=== PATIENT | female | born 1980 | race Caucasian/White ===

== ENCOUNTER 2018-02-04 15:16 | Emergency (ER) | payer OTHER, MEDICAID, SELFPAY ==
[2018-02-04 15:17] VITALS: BP 148/94; PULSE 118; RESP 20; TEMP 36; O2SAT 95; BMI 39.4
--- NOTE | 2018-02-04 15:26 | ED.VISSUMM ---
- ER Visit Summary Date of Service: 02/04/18 Chief Complaint: Dysuria History of Present Illness: The patient is a 37 F who has had 2 days of dysuria. She states it started with pain at the end of her urine stream but now it is a constant pain in her urethra. She does have a history of UTIs in the past. Denies any abdominal pain, nausea or vomiting. Denies any fevers or hematuria. She does admit that the smell of her urine has changed Physical Examination: Vital signs reviewed. HEENT exam unremarkable. Heart is regular rate and rhythm without murmurs. Lungs are clear to auscultation. Abdomen is soft and nontender. Extremities reveal no edema. Neurologic exam normal. Test Results: UA shows greater than 100 white blood cells Emergency Department Course and Treatment: Patient will be treated with Bactrim for UTI. I will give her Pyridium for home. We will follow-up with her PCP Treatment Plan: [] Disposition: Discharge Impression: UTI This note was generated with [employer] dictation software. It may contain incorrect words, spelling, and punctuation that were not noted in review of the chart prior to signing ED Disposition - Plan for ED Patient: Chief Complaint: Complaint Referrals: Marcello Baxter MD [Primary Care Provider] -
[2018-02-04 16:45] LABS: Color, Urine Yellow (Yellow); Glucose, Dipstick Normal (Normal); Ketone-Dipstick Negative (Negative); Leukocyte Esterase-Dipstick 500 /ul (Negative); Nitrite-Dipstick Positive (Negative); Occult Blood-Urine 25 /ul (Negative); Protein-Dipstick 30 mg/dl (Negative); Urine Bilirubin Dipstick Negative (Negative); Urine Clarity Cloudy (Clear); Urine Urobilinogen Normal (Normal)
[2018-02-04 16:56] LABS: Internal QC Validated? YES +Cl - CLEAR BKGD; Pregnancy, Urine Negative Negative
[2018-02-04 17:02] LABS: Bacteria 2+ /hpf (None Seen); Mucous, Urine 3+ /hpf (<or=2+); Red Blood Cells-Urine 5-10 SEEN /hpf (0-5); Squamous Epithelial Cells - UA 0-5 SEEN /hpf (5-10); White Blood Cells >100 SEEN /hpf (0-5)
--- NOTE | 2018-02-04 17:12 | ED.DEP ---
ED Disposition - Plan for ED Patient: Disposition: Home or Assisted Living Chief Complaint: Complaint Instructions: ED UTI Cystitis Female Prescriptions: Phenazopyridine HCl [Pyridium] 200 mg PO BID PRN PRN #10 tab PRN Reason: Pain Smz/Tmp Ds [Bactrim Ds] 1 tab PO BID #9 tab Referrals: Marcello Baxter MD [Primary Care Provider] -
[2018-02-04] MEDS: Smz/Tmp Ds Tablet 1 TABLET PO (17:16)
[2018-02-04 17:19] VITALS: BP 108/69; PULSE 73; RESP 15; O2SAT 99
== END 2018-02-04 17:20 | disposition home or self-care (01) ==
PROVIDERS: Emergency Provider Emergency Medicine; Family Provider Family Medicine; PCP Family Medicine
DX: N39.0 Urinary tract infection, site not specified (principal); G43.909 Migraine, unspecified, not intractable, without status migrainosus; G25.81 Restless legs syndrome; Z79.899 Other long term (current) drug therapy; Z87.440 Personal history of urinary (tract) infections
CPT/HCPCS: 81001; 81025; 99283

== ENCOUNTER → 2018-09-15 06:46 | Outpatient (CLI) | payer OTHER, MEDICAID, SELFPAY ==
--- NOTE | 2018-09-15 10:12 | NEURO ---
NCS and/or EMG Patient Report Ordering Doctor: Marcello Baxter DATE OF SERVICE: 09/15/18 This is a bilateral upper extremity nerve conduction study performed on this 38-year-old female who is previously healthy however complains of numbness tingling and weakness in her upper extremities affecting her hands worse on the left side. Is left-handed. Things have been present for several years but have become worse over the past several months which she associates with increased work load. She does have intermittent neck pain. She describes symptoms as affecting the first 3 digits primarily. Bilateral upper extremity sensory and motor nerve conduction study is performed. The bilateral median motor and sensory distal latencies are prolonged, severely on the left, moderately on the right. Velocities are mildly reduced. Amplitude on the right side are normal on the left side there are mildly reduced. The ulnar motor and sensory and radial sensory responses are normal bilaterally. The median F wave latencies bilaterally are prolonged more so on the left. Left upper extremity needle electromyography is performed. Evaluated included the first dorsal interosseous, abductor pollicis brevis, brachioradialis, biceps, triceps and deltoid muscles. The abductor pollicis brevis muscle did demonstrate mild increase in insertional activity with 1+ fibrillation potentials and positive sharp waves as well as mildly increased motor unit amplitude. more proximal muscles were normal, and all other c8 muscles are normal. impression: abnormal electrophysiologic study of the upper extremities consistent with tunnel syndrome bilaterally, moderate on the right, severe on the left. No evidence of radiculopathy.
--- OUTSIDE RECORDS SUMMARY | 2018-11-01 05:23 | XMS RPT_ITS ---
:1980 Author Organization OHIP Care Team Providers Name Role Phone NITIN WISDOM Attending Unavailable NITIN WISDOM Attending Unavailable NITIN WISDOM Referring Unavailable NITIN WISDOM Attending Unavailable SURAJ HEALY (WATER SUPPLY ENGINEER) Attending Unavailable SURAJ HEALY (WATER SUPPLY ENGINEER) Referring Unavailable GARCIA BLACKBURN (PT) Attending Unavailable SURAJ HEALY (WATER SUPPLY ENGINEER) Referring Unavailable GARCIA BLACKBURN (PT) Attending Unavailable SURAJ HEALY (WATER SUPPLY ENGINEER) Referring Unavailable SURAJ HEALY (WATER SUPPLY ENGINEER) Attending Unavailable GARCIA BLACKBURN (PT) Attending Unavailable MILAD MTZ Attending Unavailable NITIN WISDOM Referring Unavailable SURAJ HEALY (WATER SUPPLY ENGINEER) Attending Unavailable SURAJ HEALY (WATER SUPPLY ENGINEER) Referring Unavailable Nitin Wisdom Attending Unavailable Nitin Wisdom Referring Unavailable Nitin Wisdom Primary Care Unavailable Nitin Wisdom Primary Care Unavailable Lopez Dougherty Attending Unavailable PROBLEMS PROBLEMS DATE TYPE CONDITION / CODE ATTENDING STATUS SOURCE 06/15/2018 Active Encounter for NA Active [facility] therapeutic drug [place] level monitoring Repository / Z51.81(ICD-10) 07/12/2018 Unknown R30.0 - Dysuria / Lowe, Lopez Active [place] R30.0(ICD-10) [facility] Repository PROCEDURES PROCEDURES No Procedure Records FoundRESULTS RESULTS PROGRESS Observed: 10/27/2018 Status: COMPLETED Source: [place] 8:04 AM [facility] [place] REPOSITORY HNO ID: [id number] Author: Suraj Healy Service: (none) Author Type: Nurse Practitioner Type: Progress Notes Filed: 10/27/2018 8:28 AM Note Text: Chief Complaint Patient presents with: Recheck: anxiety HPI Carlos Foley is a 38 year old female who presents here today for Above Complaints. Patient presents today for 3 month follow-up for anxiety. Patient is prescribed Effexor XR 75 mg once daily. she is also prescribed Klonopin 1 mg, 1-2 tablets daily as needed. Overall, anxiety is okay. States that she gets nervous with driving in the snow. Does use Klonopin when she gets home from driving in the snow. Has not had as many headaches in the past due to lower levels of stress. Usually takes Klonopin once daily, occasionally will take 1/2 tablet to an entire tablet in the evening in addition. Is not using Imitrex due to her improve headaches. Of note, she has been dealing with bilateral carpal tunnel syndrome. Did have an EMG to confirm this diagnosis. She has an appointment with Dr. Machado this week to discuss options for treatment. She is still taking the gabapentin as prescribed. Past medical history, appointments, medications, allergies reviewed. 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 Previous Surgical History PAST SURGICAL HISTORY Procedure Laterality Date - ESSURE 06/22/2012 Dr Sanders Family History FAMILY HISTORY Problem Relation Age of Onset - Hypertension Mother - Hypertension Maternal Grandmother - Hypertension Maternal Grandfather - Cancer Paternal Grandmother pancreatic - Hypertension Father - Diabetes Maternal Uncle - Diabetes Maternal Uncle Patient Allergies ALLERGIES Allergen Reactions - Prozac [Fluoxetine * Other: See Comments Caused insomnia - Vioxx [Rofecoxib] Swelling tongue and throat swell Current Medications Current Outpatient Prescriptions on File Prior to Visit: clonazePAM (KLONOPIN) 1 mg tablet Take 1-2 tablets by mouth once daily as needed for up to 30 days. venlafaxine ER (EFFEXOR XR) 75 mg 24 hr capsule TAKE 1 CAPSULE BY MOUTH EVERY DAY gabapentin (NEURONTIN) 800 mg tablet Take 1 tablet by mouth three times daily for 180 days. SUMAtriptan (IMITREX) 50 mg tablet Take 1 tablet by mouth as needed for Migraine Headache (see administration instructions). No current facility-administered medications on file prior to visit. 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 Reviewed relevant PMHx, PSHx, Social Hx, current medications and allergies. EXAM: BP 125/89 Pulse 88 Temp 37.1 ?C (98.7 ?F) (Tympanic) Wt 110.7 kg (244 lb) BMI 40.29 kg/m? General Appearance: Well appearing, alert, in no acute distress, well-hydrated, well nourished.. Lungs: lungs clear to auscultation. No wheezing, rhonchi, rales. Heart: RRR without murmur, gallop, or rubs. No ectopy. Health Maintenance List DTAP,TDAP,TD(2 - Tdap) due on 2001 HPV EVERY 5 YEARS due on 2012 PAP EVERY 5 YEARS due on 08/19/2016 INFLUENZA Completed Data reviewed Component Latest Ref Rng AND Units 10/21/2016 06/15/2018 06/15/2018 9:14 AM 9:15 AM Cannabinoid Quant, Urine <16 ng/mL <16 Benzoylecognine Quant, Urine <24 ng/mL <24 6-Acetylmorphine Quant, Urine <5 ng/mL <5 Amphetamine Quant, Urine <5 ng/mL <5 Methamphetamine Quant, Urine <8 ng/mL <8 Buprenorphine Quant, Urine <20 ng/mL <20 Norbuprenorphine Quant, Urine <20 ng/mL <20 Methadone Quant, Urine <16 ng/mL <16 EDDP Quant, Urine <6 ng/mL <6 Tramadol Quant, Urine <25 ng/mL <25 Desmethyltramadol Quant, Urine <20 ng/mL <20 Fentanyl Quant, Urine <6 ng/mL <6 Norfentanyl Quant, Urine <6 ng/mL <6 Codeine Quant, Urine <11 ng/mL <11 Morphine Quant, Urine <10 ng/mL <10 Dihydrocodeine Quant, Urine <5 ng/mL <5 Hydrocodone Quant, Urine <8 ng/mL <8 Oxycodone Quant, Urine <10 ng/mL <10 Hydromorphone Quant, Urine <5 ng/mL <5 Oxymorphone Quant, Urine <5 ng/mL <5 Creatinine,Ur Pain Ortiz 42.2 - 237.9 mg/dL 100.9 Urine pH, Pain Ortiz 4.5 - 8.0 6.6 Specific [place],Ur Pain Ortiz 1.002 - 1.030 1.015 Oxidants,Ur <200 mg/L <38 Specimen Validity Nitrites <51 mg/L <50 <50 Specimen Validity Chromate <50 mg/L <10 <10 Specimen Validity Quality Specimen quality results within acceptable limits. Specimen quality results within acceptable limits. Note,Ur Pain Ortiz This test is for Medical use only. 7-aminoclonazepam, Urine <40 ng/mL <40 Alpha-hydroxytriazolam, Urine <40 ng/mL <40 Oxazepam, Urine <40 ng/mL <40 Alpha-hydroxyalprazolam, Urine <60 ng/mL <60 Lorazepam, Urine <40 ng/mL <40 Nordiazepam, Urine <40 ng/mL <40 Temazepam, Urine <40 ng/mL <40 Specimen Validity Creatinine 42.2 - 237.9 mg/dL 100.4 Specimen Validity PH 4.5 - 8.0 6.6 Specimen Validity Specific [place] 1.002 - 1.030 1.015 Specimen Validity Oxidants <200 mg/L <38 Benzo Confirm, Note This test is for Medical use only. Glucose 74 - 99 mg/dL 102 (H) BUN 7 - 21 mg/dL 10 Creatinine 0.58 - 0.96 mg/dL 0.80 Sodium 136 - 144 mmol/L 140 Potassium 3.7 - 5.1 mmol/L 4.1 Chloride 97 - 105 mmol/L 103 CO2 22 - 30 mmol/L 24 Anion Gap 9 - 18 mmol/L 13 Calcium 8.6 - 10.0 mg/dL 8.9 eGFR- >60 eGFR-All Other Races . >60 T4 5.5 - 10.2 ug/dL 6.4 T4 Uptake 0.91 - 1.19 0.98 FTI 5.3 - 10.8 ug/dL 6.5 TSH 0.400 - 5.500 uU/mL 0.901 ASSESSMENT/PLAN: 1. KP (generalized anxiety disorder) - ICD9: 300.02, ICD10: F41.1 (primary diagnosis) - Stable, continue current medications. Rx for Clonazepam faxed to [facility]. - CLONAZEPAM 1 MG TABLET [facility] website checked and validated. All prescriptions have been APPROPRIATELY filled. No suspicious activity was identified. 10/27/2018 by Suraj Healy APRN.CNP - VENLAFAXINE ER 75 MG CAPSULE,EXTENDED RELEASE 24 HR 2. Carpal tunnel syndrome, bilateral - ICD9: 354.0, ICD10: G56.03 - continue plan to follow with orthopedics 3. Headache disorder - ICD9: 784.0, ICD10: R51 - greatly improved, continue as needed use of Imitrex. F/u in 3 months, sooner if needed. Suraj Healy APRN.CNP CNOV Observed: 10/27/2018 Status: COMPLETED Source: ARABI 7:40 AM [facility] REPOSITORY Office Visit (FAMPWS) CARLOS FOLEY ([id number]) 1980 F Date Time Provider Department 10/27/18 7:40 AM SURAJ HEALY (WATER SUPPLY ENGINEER) FAMPWS During your visit today, we recorded the following information about you: Temperature Pulse Blood pressure Weight 98.7 degrees 88/minute 125/89 110.7 kg Suraj Healy APRN.CNP 10/27/2018 8:28 AM Signed Chief Complaint Patient presents with: Recheck: anxiety HPI Carlos Foley is a 38 year old female who presents here today for Above Complaints. Patient presents today for 3 month follow-up for anxiety. Patient is prescribed Effexor XR 75 mg once daily. she is also prescribed Klonopin 1 mg, 1-2 tablets daily as needed. Overall, anxiety is okay. States that she gets nervous with driving in the snow. Does use Klonopin when she gets home from driving in the snow. Has not had as many headaches in the past due to lower levels of stress. Usually takes Klonopin once daily, occasionally will take 1/2 tablet to an entire tablet in the evening in addition. Is not using Imitrex due to her improve headaches. Of note, she has been dealing with bilateral carpal tunnel syndrome. Did have an EMG to confirm this diagnosis. She has an appointment with Dr. Machado this week to discuss options for treatment. She is still taking the gabapentin as prescribed. Past medical history, appointments, medications, allergies reviewed. 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 Previous Surgical History PAST SURGICAL HISTORY Procedure Laterality Date - ESSURE 06/22/2012 Dr Sanders Family History FAMILY HISTORY Problem Relation Age of Onset - Hypertension Mother - Hypertension Maternal Grandmother - Hypertension Maternal Grandfather - Cancer Paternal Grandmother pancreatic - Hypertension Father - Diabetes Maternal Uncle - Diabetes Maternal Uncle Patient Allergies ALLERGIES Allergen Reactions - Prozac [Fluoxetine * Other: See Comments Caused insomnia - Vioxx [Rofecoxib] Swelling tongue and throat swell Current Medications Current Outpatient Prescriptions on File Prior to Visit: clonazePAM (KLONOPIN) 1 mg tablet Take 1-2 tablets by mouth once daily as needed for up to 30 days. venlafaxine ER (EFFEXOR XR) 75 mg 24 hr capsule TAKE 1 CAPSULE BY MOUTH EVERY DAY gabapentin (NEURONTIN) 800 mg tablet Take 1 tablet by mouth three times daily for 180 days. SUMAtriptan (IMITREX) 50 mg tablet Take 1 tablet by mouth as needed for Migraine Headache (see administration instructions). No current facility-administered medications on file prior to visit. Social History Social History Marital status: Single Spouse name: MIRTA Years of education: 12 Number of children: 3 Occupational History Occupation Employer Comment [employer]* [employer] Social History Main Topics Smoking status: Never Smoker Smokeless tobacco: Never Used Alcohol use: No Drug use: No Sexual activity: Not Currently Partners with: Male control/protection: Injection, None REVIEW OF SYSTEMS: as above ? Reviewed relevant PMHx, PSHx, Social Hx, current medications and allergies. EXAM: BP 125/89 Pulse 88 Temp 37.1 ?C (98.7 ?F) (Tympanic) Wt 110.7 kg (244 lb) BMI 40.29 kg/m? General Appearance: Well appearing, alert, in no acute distress, well-hydrated, well nourished.. Lungs: lungs clear to auscultation. No wheezing, rhonchi, rales. Heart: RRR without murmur, gallop, or rubs. No ectopy. Health Maintenance List DTAP,TDAP,TD(2 - Tdap) due on 2001 HPV EVERY 5 YEARS due on 2012 PAP EVERY 5 YEARS due on 08/19/2016 INFLUENZA Completed Data reviewed Component Latest Ref Rng AND Units 10/21/2016 06/15/2018 06/15/2018 9:14 AM 9:15 AM Cannabinoid Quant, Urine <16 ng/mL <16 Benzoylecognine Quant, Urine <24 ng/mL <24 6-Acetylmorphine Quant, Urine <5 ng/mL <5 Amphetamine Quant, Urine <5 ng/mL <5 Methamphetamine Quant, Urine <8 ng/mL <8 Buprenorphine Quant, Urine <20 ng/mL <20 Norbuprenorphine Quant, Urine <20 ng/mL <20 Methadone Quant, Urine <16 ng/mL <16 EDDP Quant, Urine <6 ng/mL <6 Tramadol Quant, Urine <25 ng/mL <25 Desmethyltramadol Quant, Urine <20 ng/mL <20 Fentanyl Quant, Urine <6 ng/mL <6 Norfentanyl Quant, Urine <6 ng/mL <6 Codeine Quant, Urine <11 ng/mL <11 Morphine Quant, Urine <10 ng/mL <10 Dihydrocodeine Quant, Urine <5 ng/mL <5 Hydrocodone Quant, Urine <8 ng/mL <8 Oxycodone Quant, Urine <10 ng/mL <10 Hydromorphone Quant, Urine <5 ng/mL <5 Oxymorphone Quant, Urine <5 ng/mL <5 Creatinine,Ur Pain Ortiz 42.2 - 237.9 mg/dL 100.9 Urine pH, Pain Ortiz 4.5 - 8.0 6.6 Specific [place],Ur Pain Ortiz 1.002 - 1.030 1.015 Oxidants,Ur <200 mg/L <38 Specimen Validity Nitrites <51 mg/L <50 <50 Specimen Validity Chromate <50 mg/L <10 <10 Specimen Validity Quality Specimen quality results within acceptable limits. Specimen quality results within acceptable limits. Note,Ur Pain Ortiz This test is for Medical use only. 7-aminoclonazepam, Urine <40 ng/mL <40 Alpha-hydroxytriazolam, Urine <40 ng/mL <40 Oxazepam, Urine <40 ng/mL <40 Alpha-hydroxyalprazolam, Urine <60 ng/mL <60 Lorazepam, Urine <40 ng/mL <40 Nordiazepam, Urine <40 ng/mL <40 Temazepam, Urine <40 ng/mL <40 Specimen Validity Creatinine 42.2 - 237.9 mg/dL 100.4 Specimen Validity PH 4.5 - 8.0 6.6 Specimen Validity Specific [place] 1.002 - 1.030 1.015 Specimen Validity Oxidants <200 mg/L <38 Benzo Confirm, Note This test is for Medical use only. Glucose 74 - 99 mg/dL 102 (H) BUN 7 - 21 mg/dL 10 Creatinine 0.58 - 0.96 mg/dL 0.80 Sodium 136 - 144 mmol/L 140 Potassium 3.7 - 5.1 mmol/L 4.1 Chloride 97 - 105 mmol/L 103 CO2 22 - 30 mmol/L 24 Anion Gap 9 - 18 mmol/L 13 Calcium 8.6 - 10.0 mg/dL 8.9 eGFR- >60 eGFR-All Other Races . >60 T4 5.5 - 10.2 ug/dL 6.4 T4 Uptake 0.91 - 1.19 0.98 FTI 5.3 - 10.8 ug/dL 6.5 TSH 0.400 - 5.500 uU/mL 0.901 ASSESSMENT/PLAN: 1. KP (generalized anxiety disorder) - ICD9: 300.02, ICD10: F41.1 (primary diagnosis) - Stable, continue current medications. Rx for Clonazepam faxed to [facility]. - CLONAZEPAM 1 MG TABLET PDMP website checked and validated. All prescriptions have been APPROPRIATELY filled. No suspicious activity was identified. 10/27/2018 by Suraj Healy APRN.WATER SUPPLY ENGINEER - VENLAFAXINE ER 75 MG CAPSULE,EXTENDED RELEASE 24 HR 2. Carpal tunnel syndrome, bilateral - ICD9: 354.0, ICD10: G56.03 - continue plan to follow with orthopedics 3. Headache disorder - ICD9: 784.0, ICD10: R51 - greatly improved, continue as needed use of Imitrex. F/u in 3 months, sooner if needed. Suraj Healy APRN.CNP Referring Provider: SURAJ HEALY ([facility]) [[id number]] Allergies As of Date: 10/27/2018 Noted Allergy Reaction PROZAC (FLUOXETINE HCL) 02/27/2018 14 - Other: See Comments Comments: Caused insomnia VIOXX (ROFECOXIB) 05/25/2007 7 - Swelling Comments: tongue and throat swell Date Reviewed: 10/27/2018 Reviewed by: Teresita Salgado Hi Lift Operator - Fully Assessed Reason for Visit: Recheck [92] Cmt: anxiety Primary Visit Diagnosis:KP (generalized anxiety disorder) [F41.1] Other Visit Diagnoses:Carpal tunnel syndrome, bilateral [G56.03] Headache disorder [R51] Order(s):clonazePAM (KLONOPIN) 1 mg tabletTake 1-2 tablets by mouth once daily as needed for up to 30 days.Disp: 60 tabletRfl: 0 venlafaxine ER (EFFEXOR XR) 75 mg 24 hr capsuleTake 1 capsule by mouth once daily.Disp: 30 capsuleRfl: 5 Prescriptions as of 10/27/2018 Sig: CLONAZEPAM 1 MG TABLET Take 1-2 tablets by mouth onc* GABAPENTIN 800 MG TABLET Take 1 tablet by mouth three * SUMATRIPTAN 50 MG TABLET Take 1 tablet by mouth as nee* VENLAFAXINE ER 75 MG CAPSULE,* Take 1 capsule by mouth once * Medication notes this encounter ETODOLAC 400 MG TABLET >> Teresita Salgado Cma 10/27/2018 8:02 AM headaches Problem List As Of Date 10/27/2018 Noted Resolved Supervision of Other Normal [Z34.80] INVALID FOR*12/28/2009 Surveillance of other previously prescribed con*INVALID FOR*12/26/2011 ANXIETY STATE NOS [F41.1] INVALID FOR* More... 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 Unspecified Backache [M54.9] INVALID FOR*12/28/2009 Impaired fasting glucose [R73.01] INVALID FOR*12/26/2011 Insomnia [G47.00] INVALID FOR* Headache disorder [R51] INVALID FOR* Unspecified high-risk [O09.90] INVALID FOR*05/27/2012 More... Gestational diabetes mellitus, class A1 [O24.41*INVALID FOR*05/27/2012 More... History of shoulder dystocia in prior *INVALID FOR*05/27/2012 More... Sterilization [Z30.2] INVALID FOR* More... Abnormal maternal glucose tolerance, with deliv*INVALID FOR* Obesity, Class III, BMI 40-49.9 (morbid obesity*INVALID FOR* Carpal tunnel syndrome, bilateral [G56.03] INVALID FOR* Prescriptions ordered this encounter Disp Refills Start End CLONAZEPAM 1 MG TABLET 60 t* 0 10/27/2018 11/26/2018 Class: Print RX Route: ORAL Sig: Take 1-2 tablets by mouth once daily as needed for up to 30 days. VENLAFAXINE ER 75 MG CAPSULE,EXTENDE* 30 c* 5 10/27/2018 Route: ORAL Sig: Take 1 capsule by mouth once daily. Medications Discontinued During This Encounter etodolac (LODINE) 400 mg tablet 60 t* 2 07/16/2018 10/27/2018 Route: ORAL Sig: Take 1 tablet by mouth twice daily. Patient not taking: Reported on 09/30/2018 Disc: Discontinued by Patient clonazePAM (KLONOPIN) 1 mg tablet 60 t* 0 09/25/2018 10/27/2018 Class: Call Rx Route: ORAL Sig: Take 1-2 tablets by mouth once daily as needed for up to 30 days. Disc: Reason for discontinue is not on file. venlafaxine ER (EFFEXOR XR) 75 mg 24* 30 c* 1 08/11/2018 10/27/2018 Sig: TAKE 1 CAPSULE BY MOUTH EVERY DAY Disc: Reason for discontinue is not on file. Disposition: Return in about 3 months (around 01/25/2019) for Anxiety, headache f/u. Follow-up and Disposition History Recorded Encounter Status:Closed by SURAJ HEALY CNP on 10/27/18 PROGRESS Observed: 09/30/2018 Status: COMPLETED Source: ARABI 8:45 AM [facility] REPOSITORY HNO ID: [id number] Author: Milad Mtz V Service: (none) Author Type: Physician Type: Progress Notes Filed: 09/30/2018 8:49 AM Note Text: SUBJECTIVE: Patient is a 38 year old left handed dominant female who complains of bilateral wrist and hand pain The pain has been getting progressively worse in onset over 2 years. She describes the pain as numbness , tingling and aching worsening with minimal activity at night causing sleep disturbance. Patient has had splinting [id number] pain medications and gabapentin with minimal relief. 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, concurrent with father's disease FAMILY HISTORY Problem Relation Age of Onset - Hypertension Mother - Hypertension Maternal Grandmother - Hypertension Maternal Grandfather - Cancer Paternal Grandmother pancreatic - Hypertension Father - Diabetes Maternal Uncle - Diabetes Maternal Uncle Social History Marital status: Single Spouse name: MIRTA Years of education: 12 Number of children: 3 Occupational 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 Bilateral hands show no thenar wasting. Vallez Filter Operator strength is equal. Positive Tinell's test and Positive Phalen's test bilaterally. EMG shows evidence of moderate right and severe Left CTS IMPRESSION: carpal tunnel syndrome- severe on left, moderate on right PLAN: surgical referral to Dr. Machado continue with night splints, icing, stretching and medications. Milad Mtz DO PROGRESS Observed: 09/30/2018 Status: COMPLETED Source: ARABI 8:09 AM [facility] REPOSITORY HNO ID: [id number] Author: Valencia Romeo RN Service: (none) Author Type: (none) Type: Progress Notes Filed: 09/30/2018 8:49 AM Note Text: AMB ROOMING INTAKE FLOWSHEET DATA Risk Screening Do you have concerns about personal safety or safety in the home?: No Pain Pain Score: 6/10 Pain Location: Other: See Comment (bilateral wrists, L > R) Description: Numbness, Tingling, Other: See comment (electric shocks) Duration Amount of Time: 2 Duration Units: Months Frequency: Continuous Intervention: Splinting, Relaxation New patient is here for bilateral wrist pain, L > R. Pain present the past 2 years off and on but has become worse within the past 2 months. L wrist is constantly numb, tingling and pain radiates to her shoulder. She has tried splints and is taking Neurontin. Splinting helped for a little bit. Neurontin helps but she can only take it at night d/t drowsiness. 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 Since she has been off work recently d/t pain and has noticed that pain is not as bad. She had an EMG done at [facility] on 09/15/18. CNOV Observed: 09/30/2018 Status: COMPLETED Source: ARABI 8:00 AM [facility] REPOSITORY Office Visit (UC) CARLOS FOLEY ([id number]) 1980 F Date Time Provider Department 09/30/18 8:00 AM MILAD MTZ During your visit today, we recorded the following information about you: Valencia Romeo RN 09/30/2018 8:49 AM Signed AMB ROOMING INTAKE FLOWSHEET DATA Risk Screening Do you have concerns about personal safety or safety in the home?: No Pain Pain Score: 6/10 Pain Location: Other: See Comment (bilateral wrists, L > R) Description: Numbness, Tingling, Other: See comment (electric shocks) Duration Amount of Time: 2 Duration Units: Months Frequency: Continuous Intervention: Splinting, Relaxation New patient is here for bilateral wrist pain, L > R. Pain present the past 2 years off and on but has become worse within the past 2 months. L wrist is constantly numb, tingling and pain radiates to her shoulder. She has tried splints and is taking Neurontin. Splinting helped for a little bit. Neurontin helps but she can only take it at night d/t drowsiness. 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 Since she has been off work recently d/t pain and has noticed that pain is not as bad. She had an EMG done at [facility] on 09/15/18. Milad Mtz DO 09/30/2018 8:49 AM Signed SUBJECTIVE: Patient is a 38 year old left handed dominant female who complains of bilateral wrist and hand pain The pain has been getting progressively worse in onset over 2 years. She describes the pain as numbness , tingling and aching worsening with minimal activity at night causing sleep disturbance. Patient has had splinting [id number] pain medications and gabapentin with minimal relief. 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, concurrent with father's disease FAMILY HISTORY Problem Relation Age of Onset - Hypertension Mother - Hypertension Maternal Grandmother - Hypertension Maternal Grandfather - Cancer Paternal Grandmother pancreatic - Hypertension Father - Diabetes Maternal Uncle - Diabetes Maternal Uncle Social History Marital status: Single Spouse name: MIRTA Years of education: 12 Number of children: 3 Occupational 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 Bilateral hands show no thenar wasting. Vallez Filter Operator strength is equal. Positive Tinell's test and Positive Phalen's test bilaterally. EMG shows evidence of moderate right and severe Left CTS IMPRESSION: carpal tunnel syndrome- severe on left, moderate on right PLAN: surgical referral to Dr. Machado continue with night splints, icing, stretching and medications. Milad Mtz DO Referring Provider: NITIN WISDOM [[id number]] Allergies As of Date: 09/30/2018 Noted Allergy Reaction PROZAC (FLUOXETINE HCL) 02/27/2018 14 - Other: See Comments Comments: Caused insomnia VIOXX (ROFECOXIB) 05/25/2007 7 - Swelling Comments: tongue and throat swell Date Reviewed: 09/30/2018 Reviewed by: Valencia Romeo RN - Fully Assessed Reason for Visit: New Patient [172] Primary Visit Diagnosis:Carpal tunnel syndrome, bilateral [G56.03] Prescriptions as of 09/30/2018 Sig: CLONAZEPAM 1 MG TABLET Take 1-2 tablets by mouth onc* GABAPENTIN 800 MG TABLET Take 1 tablet by mouth three * SUMATRIPTAN 50 MG TABLET Take 1 tablet by mouth as nee* VENLAFAXINE ER 75 MG CAPSULE,* TAKE 1 CAPSULE BY MOUTH EVERY* ETODOLAC 400 MG TABLET Take 1 tablet by mouth twice * Patient not taking: Reported on 09/30/2018 Problem List As Of Date 09/30/2018 Noted Resolved Supervision of Other Normal [Z34.80] INVALID FOR*12/28/2009 Surveillance of other previously prescribed con*INVALID FOR*12/26/2011 ANXIETY STATE NOS [F41.1] INVALID FOR* More... 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 Unspecified Backache [M54.9] INVALID FOR*12/28/2009 Impaired fasting glucose [R73.01] INVALID FOR*12/26/2011 Insomnia [G47.00] INVALID FOR* Headache disorder [R51] INVALID FOR* Unspecified high-risk [O09.90] INVALID FOR*05/27/2012 More... Gestational diabetes mellitus, class A1 [O24.41*INVALID FOR*05/27/2012 More... History of shoulder dystocia in prior *INVALID FOR*05/27/2012 More... Sterilization [Z30.2] INVALID FOR* More... Abnormal maternal glucose tolerance, with deliv*INVALID FOR* Obesity, Class III, BMI 40-49.9 (morbid obesity*INVALID FOR* Carpal tunnel syndrome, bilateral [G56.03] INVALID FOR* Encounter Status:Closed by MILAD MTZ DO, V on 09/30/18 NCS AND/OR EMG Observed: 09/15/2018 Status: F Source: [facility] PATIENT 10:25 AM [facility] REPOSITORY [facility] Pulmonary Services/Neurology [address] [place] [address] MR#: [id number] Acct: [id number] Name: CARLOS FOLEY Rep #: [id number] : 1980 38 From: James Barnett MD Referring Dr: Nitin Wisdom MD Status: REG CLI Ordering Dr: Date: Location: [facility] [place] Sex: F C NCS and/or EMG Patient Report Ordering Doctor: Nitin Wisdom DATE OF SERVICE: 09/15/18 This is a bilateral upper extremity nerve conduction study performed on this 38-year-old female who is previously healthy however complains of numbness tingling and weakness in her upper extremities affecting her hands worse on the left side. Is left-handed. Things have been present for several years but have become worse over the past several months which she associates with increased work load. She does have intermittent neck pain. She describes symptoms as affecting the first 3 digits primarily. Bilateral upper extremity sensory and motor nerve conduction study is performed. The bilateral median motor and sensory distal latencies are prolonged, severely on the left, moderately on the right. Velocities are mildly reduced. Amplitude on the right side are normal on the left side there are mildly reduced. The ulnar motor and sensory and radial sensory responses are normal bilaterally. The median F wave latencies bilaterally are prolonged more so on the left. Left upper extremity needle electromyography is performed. Evaluated included the first dorsal interosseous, abductor pollicis brevis, brachioradialis, biceps, triceps and deltoid muscles. The abductor pollicis brevis muscle did demonstrate mild increase in insertional activity with 1+ fibrillation potentials and positive sharp waves as well as mildly increased motor unit amplitude. more proximal muscles were normal, and all other c8 muscles are normal. impression: abnormal electrophysiologic study of the upper extremities consistent with tunnel syndrome bilaterally, moderate on the right, severe on the left. No evidence of radiculopathy. 09/15/18 1025 <Electronically signed by James Barnett MD> Date James Barnett MD CC: Nitin Wisdom MD; James Barnett MD Date Dictated: 09/15/18 1012 Date Transcribed: 09/15/18 1012 Supervisor Gate Services: THONY Signed PROGRESS Observed: 08/17/2018 Status: COMPLETED Source: [place] 9:23 AM [facility] [place] REPOSITORY HNO ID: [id number] Author: Garcia (Pt) Alexey Service: (none) Author Type: Physical Therapist Type: Progress Notes Filed: 08/17/2018 9:38 AM Note Text: Episode Visit Count: 3 Therapist That Will Oversee The Plan Of Care: Garciayusra Blackburn Start of Care Date: 07/08/18 Plan of Care Certification Date: 07/08/18 Patient Identified by Name and Date of : Yes REHABILITATION AND SPORTS THERAPY PHYSICAL THERAPY DISCONTINUANCE OF CARE PLAN OF CARE UPDATE: Assessment: Carlos Foley is discontinued from Physical Therapy services due to maximal benefit.. Patient was seen for 3 visits from Start of Care Date: 07/08/18 to 08/17/2018 and treatment included: Therapeutic exercise, Manual therapy, Self-shelter management and Patient/Family/Caregiver Education. Patient has seen no change since beginning therapy, even with being completely compliant with HEP. If anything, patient has regressed. She is now unable to even write or perform fine motor tasks, which is a steep functional decline since her last visit. Patient's applique cutter strength was also less today in both arms, along with increased symptoms at rest. Patient will be referred back to the referring physician and has an EMG scheduled as well. She will follow up as needed with ortho and pcp. Goals for Episode of Care: created on 07/08/18 through 09/11/18 [place] in home exercise program. Met Patient will decrease pain rating by 2 points to meet minimal clinical important difference for numeric pain rating scale. Not met Patient will increase strength of L C8-T1 to 5/5 to allow for return to prior functional status and perform ADLs. Not met Patient will increase flexibility of B pec minor and forearm flexors to WNL to restore normal mechanics and decrease pain. Not met Perform lifting and carrying without pain. Not met SUBJECTIVE: Pt is currently having alot of pain in the left arm, shoulder, and up into the neck. The highest intensity of pain is located in the mid left arm currently. Both arms feel like they are tingling/buzzing, and then the left shoulder/arm is increasing in pain since last session. Exercises and manual techniques help for a small amount of time, then symptoms come right back and are now getting worse if anything. She has noticed that she is having difficulty even picking up laundry, cooking, eating, playing with her kid and fine motor tasks like picking up think flat coin or bingo chip like objects. she is currently unable to do dishes, heavy lifting, writting- the last of which is really affecting her. She gets shooting pain up her arm when she tries to do any sort of writting. At rest the left arm is very painful. The right arm/hand is not symptomatic at rest, but the symptoms start as soon as she starts actively using that side. . Pain Score: 7/10 Pain Location: Shoulder - Left;Neck - Left;Hand - Left OBJECTIVE MEASURES WITH LEVEL OF FUNCTION: Posture / Alignment R Shoulder Alignment: (R pec minor moderately limited) L Shoulder Alignment: (Left pec minor moderately limited) UE AROM L UE AROM: (decreased supination, wrist extension on left) UE and Cervical Strength R Elbow Flexion (C6): 5/5 R Elbow Extension (C7): 5/5 R Vallez Filter Operator (Position 2) (lbs): 82 R Thumb Extension (C8): 4+/5 R Finger Adduction/Interossei (T1): 4+/5 L Elbow Flexion (C6): 5/5 L Elbow Extension (C7): 5/5 L Vallez Filter Operator (Position 2) (lbs): 80 L Thumb Extension (C8): 4+/5 L Finger Adduction/Interossei (T1): 4+/5 TREATMENT: Therapeutic Exercise: 1: Pec minor stretch 2x30 sec/side 2: B forearm flexor stretch 2x30 sec 3: Median N glides- bump on, bump off [id number] until symptoms plateau Skilled Intervention: Patient was educated in proper exercise technique and purpose for exercises. Skilled judgment was provided in selection of appropriate interventions. Billing: [facility]: Therapeutic Exercise ([id number]): 1:1 time: 15 minutes (1 unit: 8-22 mins) Total time: 15 minutes Garcia Blackburn PT CNTHERAPY Observed: 08/17/2018 Status: COMPLETED Source: [place] 8:15 AM [facility] REPOSITORY OT/PT/Speech Visit (PTWS) CARLOS FOLEY ([id number]) 1980 F Date Time Provider Department 08/17/18 8:15 AM GARCIA BLACKBURN (PT) PTWS Date Time Provider Department Center 08/17/2018 8:15 AM [id number], SEAN (PT)PTWS [facility] [place] Reason for Visit: PT Discharge [752] Physical Therapy [503] Primary Visit Diagnosis:Carpal tunnel syndrome, bilateral [G56.03] Allergies As of Date: 08/17/2018 Noted Allergy Reaction PROZAC (FLUOXETINE HCL) 02/27/2018 14 - Other: See Comments Comments: Caused insomnia VIOXX (ROFECOXIB) 05/25/2007 7 - Swelling Comments: tongue and throat swell Date Reviewed: 07/27/2018 Reviewed by: Teresita Salgado Hi Lift Operator - Fully Assessed Prescriptions as of 08/17/2018 Sig: VENLAFAXINE ER 75 MG CAPSULE,* TAKE 1 CAPSULE BY MOUTH EVERY* CLONAZEPAM 1 MG TABLET Take 1-2 tablets by mouth onc* GABAPENTIN 800 MG TABLET Take 1 tablet by mouth three * ETODOLAC 400 MG TABLET Take 1 tablet by mouth twice * SUMATRIPTAN 50 MG TABLET Take 1 tablet by mouth as nee* Progress Notes: Garcia Blackburn PT 08/17/2018 9:38 AM Signed Episode Visit Count: 3 Therapist That Will Oversee The Plan Of Care: Garcia Blackburn Start of Care Date: 07/08/18 Plan of Care Certification Date: 07/08/18 Patient Identified by Name and Date of : Yes REHABILITATION AND SPORTS THERAPY PHYSICAL THERAPY DISCONTINUANCE OF CARE PLAN OF CARE UPDATE: Assessment: Carlos Foley is discontinued from Physical Therapy services due to maximal benefit.. Patient was seen for 3 visits from Start of Care Date: 07/08/18 to 08/17/2018 and treatment included: Therapeutic exercise, Manual therapy, Self-shelter management and Patient/Family/Caregiver Education. Patient has seen no change since beginning therapy, even with being completely compliant with HEP. If anything, patient has regressed. She is now unable to even write or perform fine motor tasks, which is a steep functional decline since her last visit. Patient's applique cutter strength was also less today in both arms, along with increased symptoms at rest. Patient will be referred back to the referring physician and has an EMG scheduled as well. She will follow up as needed with ortho and pcp. Goals for Episode of Care: created on 07/08/18 through 09/11/18 [place] in home exercise program. Met Patient will decrease pain rating by 2 points to meet minimal clinical important difference for numeric pain rating scale. Not met Patient will increase strength of L C8-T1 to 5/5 to allow for return to prior functional status and perform ADLs. Not met Patient will increase flexibility of B pec minor and forearm flexors to WNL to restore normal mechanics and decrease pain. Not met Perform lifting and carrying without pain. Not met SUBJECTIVE: Pt is currently having alot of pain in the left arm, shoulder, and up into the neck. The highest intensity of pain is located in the mid left arm currently. Both arms feel like they are tingling/buzzing, and then the left shoulder/arm is increasing in pain since last session. Exercises and manual techniques help for a small amount of time, then symptoms come right back and are now getting worse if anything. She has noticed that she is having difficulty even picking up laundry, cooking, eating, playing with her kid and fine motor tasks like picking up think flat coin or bingo chip like objects. she is currently unable to do dishes, heavy lifting, writting- the last of which is really affecting her. She gets shooting pain up her arm when she tries to do anysort of writting. At rest the left arm is very painful. The right arm/hand is not symptomatic at rest, but the symptoms start as soon as she starts actively using that side. . Pain Score: 7/10 Pain Location: Shoulder - Left;Neck - Left;Hand - Left OBJECTIVE MEASURES WITH LEVEL OF FUNCTION: Posture / Alignment R Shoulder Alignment: (R pec minor moderately limited) L Shoulder Alignment: (Left pec minor moderately limited) UE AROM L UE AROM: (decreased supination, wrist extension on left) UE and Cervical Strength R Elbow Flexion (C6): 5/5 R Elbow Extension (C7): 5/5 R Vallez Filter Operator (Position 2) (lbs): 82 R Thumb Extension (C8): 4+/5 R Finger Adduction/Interossei (T1): 4+/5 L Elbow Flexion (C6): 5/5 L Elbow Extension (C7): 5/5 L Vallez Filter Operator (Position 2) (lbs): 80 L Thumb Extension (C8): 4+/5 L Finger Adduction/Interossei (T1): 4+/5 TREATMENT: Therapeutic Exercise: 1: Pec minor stretch 2x30 sec/side 2: B forearm flexor stretch 2x30 sec 3: Median N glides- bump on, bump off 1u11-90 until symptoms plateau Skilled Intervention: Patient was educated in proper exercise technique and purpose for exercises. Skilled judgment was provided in selection of appropriate interventions. Billing: [facility]: Therapeutic Exercise ([id number]): 1:1 time: 15 minutes (1 unit: 8-22 mins) Total time: 15 minutes Garcia Blackburn PT PROGRESS Observed: 07/27/2018 Status: COMPLETED Source: [place] 8:11 AM [facility] REPOSITORY HNO ID: [id number] Author: Suraj Healy Service: (none) Author Type: Nurse Practitioner Type: Progress Notes Filed: 07/27/2018 8:28 AM Note Text: Chief Complaint Patient presents with: 6 week follolw up HPI Carlos Foley is a 38 year old female who presents here today for Above Complaints.. Patient presents to the office today for 6 week follow-up regarding bilateral carpal tunnel syndrome. Patient has been participating in physical therapy appointments. She was placed on Etodolac as meloxicam was effective. she was referred to orthopedics, but was turned away as she did not have an EMG completed prior to them seeing her? She is scheduled for an EMG on August 06, 2018. States that she is now going on vacation and cannot go to the EMG, states that her appointment is now September 15 at [facility]. States that physical therapy has been providing some relief. Also is using gabapentin 600 mg 1 tablet 3 times daily. States that she does not take the etodolac as much as it is prescribed as it increases her migraines. She continues to have bilateral hand, forearm, wrist numbness. States that her shoulder radiating shoulder pain has improved. These symptoms are more prominent during driving, writing, sleeping. She was given bilateral cockup splints. States that they are helping. states that overall her symptoms have improved as she has been off of work for an extended period of time which is allowed her to rest. She has been taking classes for 's selling insurance as this would not put strain on her shoulders, elbow, wrists. Past medical history, appointments, medications, allergies reviewed. Previous Medical History PAST MEDICAL HISTORY Diagnosis Date - Infectious mononucleosis 1997 - Personal history of tuberculosis diagnoses with [facility] age 10 [facility], concurrent with father's disease Previous Surgical History PAST SURGICAL HISTORY Procedure Laterality Date - ESSURE 06/22/2012 Dr Sanders Family History FAMILY HISTORY Problem Relation Age of Onset - Hypertension Mother - Hypertension Maternal Grandmother - Hypertension Maternal Grandfather - Cancer Paternal Grandmother pancreatic - Hypertension Father - Diabetes Maternal Uncle - Diabetes Maternal Uncle Patient Allergies ALLERGIES Allergen Reactions - Prozac [Fluoxetine * Other: See Comments Caused insomnia - Vioxx [Rofecoxib] Swelling tongue and throat swell Current Medications Current Outpatient Prescriptions on File Prior to Visit: clonazePAM (KLONOPIN) 1 mg tablet Take 1 tablet by mouth once daily as needed for up to 30 days. etodolac (LODINE) 400 mg tablet Take 1 tablet by mouth twice daily. venlafaxine ER (EFFEXOR XR) 75 mg 24 hr capsule TAKE 1 CAPSULE BY MOUTH EVERY DAY gabapentin (NEURONTIN) 600 mg tablet Take 1 tablet by mouth three times daily for 180 days. SUMAtriptan (IMITREX) 50 mg tablet Take 1 tablet by mouth as needed for Migraine Headache (see administration instructions). No current facility-administered medications on file prior to visit. Social History Social History Marital status: Single Spouse name: MIRTA Years of education: 12 Number of children: 3 Occupational History Occupation Employer Comment [employer]* [employer] Social History Main Topics Smoking status: Never Smoker Smokeless tobacco: Never Used Alcohol use: No Drug use: No Sexual activity: Not Currently Partners with: Male control/protection: Injection, None REVIEW OF SYSTEMS: as above ? Reviewed relevant PMHx, PSHx, Social Hx, current medications and allergies. EXAM: BP 118/78 Pulse 80 Temp 36.9 ?C (98.5 ?F) (Tympanic) Resp 20 Wt 103.4 kg (228 lb) BMI 37.65 kg/m? General Appearance: Well appearing, alert, in no acute distress, well-hydrated, well nourished.. Lungs: Lungs clear to auscultation. No wheezing, rhonchi, rales. Heart: RRR without murmur, gallop, or rubs. No ectopy. Musculoskeletal: right and left shoulder of full ROM. bilateral forearms are tender, feel tight. No Tinel sign at this time Health Maintenance List DTAP,TDAP,TD(2 - Tdap) due on 2001 HPV EVERY 5 YEARS due on 2012 PAP EVERY 5 YEARS due on 08/19/2016 INFLUENZA Completed Data reviewed PT encounters reviewed. ASSESSMENT/PLAN: 1. Carpal tunnel syndrome, bilateral - ICD9: 354.0, ICD10: G56.03 - improved symptoms. We will increase gabapentin to 800 mg 3 times a day, continue with PT, see Ortho Evra after EMG is completed. - GABAPENTIN 800 MG TABLET [facility] website checked and validated. All prescriptions have been APPROPRIATELY filled. No suspicious activity was identified. 07/27/2018 by Suraj Healy APRN.CNP F/u in 3 months or sooner if needed Suraj Healy APRN.CNP CNOV Observed: 07/27/2018 Status: COMPLETED Source: [place] 8:00 AM [facility] REPOSITORY Office Visit (FAMPWS) CARLOS FOLEY ([id number]) 1980 F Date Time Provider Department 07/27/18 8:00 AM SURAJ HEALY (WATER SUPPLY ENGINEER) FAMPWS During your visit today, we recorded the following information about you: Temperature Pulse Respiration Blood pressure 98.5 degrees 80/minute 20/minute 118/78 Weight 103.4 kg Suraj Healy APRN.CNP 07/27/2018 8:28 AM Signed Chief Complaint Patient presents with: 6 week follolw up HPI Carlos Foley is a 38 year old female who presents here today for Above Complaints.. Patient presents to the office today for 6 week follow-up regarding bilateral carpal tunnel syndrome. Patient has been participating in physical therapy appointments. She was placed on Etodolac as meloxicam was effective. she was referred to orthopedics, but was turned away as she did not have an EMG completed prior to them seeing her? She is scheduled for an EMG on August 06, 2018. States that she is now going on vacation and cannot go to the EMG, states that her appointment is now September 15 at [facility]. States that physical therapy has been providing some relief. Also is using gabapentin 600 mg 1 tablet 3 times daily. States that she does not take the etodolac as much as it is prescribed as it increases her migraines. She continues to have bilateral hand, forearm, wrist numbness. States that her shoulder radiating shoulder pain has improved. These symptoms are more prominent during driving, writing, sleeping. She was given bilateral cockup splints. States that they are helping. states that overall her symptoms have improved as she has been off of work for an extended period of time which is allowed her to rest. She has been taking classes for 's selling insurance as this would not put strain on her shoulders, elbow, wrists. Past medical history, appointments, medications, allergies reviewed. Previous Medical History PAST MEDICAL HISTORY Diagnosis Date - Infectious mononucleosis 1997 - Personal history of tuberculosis diagnoses with active pulmonary tuberculosis at age 10 [facility], concurrent with father's disease Previous Surgical History PAST SURGICAL HISTORY Procedure Laterality Date - ESSURE 06/22/2012 Dr Sanders Family History FAMILY HISTORY Problem Relation Age of Onset - Hypertension Mother - Hypertension Maternal Grandmother - Hypertension Maternal Grandfather - Cancer Paternal Grandmother pancreatic - Hypertension Father - Diabetes Maternal Uncle - Diabetes Maternal Uncle Patient Allergies ALLERGIES Allergen Reactions - Prozac [Fluoxetine * Other: See Comments Caused insomnia - Vioxx [Rofecoxib] Swelling tongue and throat swell Current Medications Current Outpatient Prescriptions on File Prior to Visit: clonazePAM (KLONOPIN) 1 mg tablet Take 1 tablet by mouth once daily as needed for up to 30 days. etodolac (LODINE) 400 mg tablet Take 1 tablet by mouth twice daily. venlafaxine ER (EFFEXOR XR) 75 mg 24 hr capsule TAKE 1 CAPSULE BY MOUTH EVERY DAY gabapentin (NEURONTIN) 600 mg tablet Take 1 tablet by mouth three times daily for 180 days. SUMAtriptan (IMITREX) 50 mg tablet Take 1 tablet by mouth as needed for Migraine Headache (see administration instructions). No current facility-administered medications on file prior to visit. 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 Reviewed relevant PMHx, PSHx, Social Hx, current medications and allergies. EXAM: BP 118/78 Pulse 80 Temp 36.9 ?C (98.5 ?F) (Tympanic) Resp 20 Wt 103.4 kg (228 lb) BMI 37.65 kg/m? General Appearance: Well appearing, alert, in no acute distress, well-hydrated, well nourished.. Lungs: Lungs clear to auscultation. No wheezing, rhonchi, rales. Heart: RRR without murmur, gallop, or rubs. No ectopy. Musculoskeletal: right and left shoulder of full ROM. bilateral forearms are tender, feel tight. No Tinel sign at this time Health Maintenance List DTAP,TDAP,TD(2 - Tdap) due on 2001 HPV EVERY 5 YEARS due on 2012 PAP EVERY 5 YEARS due on 08/19/2016 INFLUENZA Completed Data reviewed PT encounters reviewed. ASSESSMENT/PLAN: 1. Carpal tunnel syndrome, bilateral - ICD9: 354.0, ICD10: G56.03 - improved symptoms. We will increase gabapentin to 800 mg 3 times a day, continue with PT, see Ortho Evra after EMG is completed. - GABAPENTIN 800 MG TABLET PDMP website checked and validated. All prescriptions have been APPROPRIATELY filled. No suspicious activity was identified. 07/27/2018 by Suraj Healy APRN.WATER SUPPLY ENGINEER F/u in 3 months or sooner if needed Suraj Healy APRN.WATER SUPPLY ENGINEER Referring Provider: SELF [200] Allergies As of Date: 07/27/2018 Noted Allergy Reaction PROZAC (FLUOXETINE HCL) 02/27/2018 14 - Other: See Comments Comments: Caused insomnia VIOXX (ROFECOXIB) 05/25/2007 7 - Swelling Comments: tongue and throat swell Date Reviewed: 07/27/2018 Reviewed by: Teresita Salgado Hi Lift Operator - Fully Assessed Reason for Visit: 6 week follolw up [Other] Primary Visit Diagnosis:Carpal tunnel syndrome, bilateral [G56.03] Order(s):gabapentin (NEURONTIN) 800 mg tabletTake 1 tablet by mouth three times daily for 180 days.Disp: 90 tabletRfl: 5 Prescriptions as of 07/27/2018 Sig: GABAPENTIN 800 MG TABLET Take 1 tablet by mouth three * CLONAZEPAM 1 MG TABLET Take 1 tablet by mouth once d* ETODOLAC 400 MG TABLET Take 1 tablet by mouth twice * VENLAFAXINE ER 75 MG CAPSULE,* TAKE 1 CAPSULE BY MOUTH EVERY* SUMATRIPTAN 50 MG TABLET Take 1 tablet by mouth as nee* Problem List As Of Date 07/27/2018 Noted Resolved Supervision of Other Normal [Z34.80] INVALID FOR*12/28/2009 Surveillance of other previously prescribed con*INVALID FOR*12/26/2011 ANXIETY STATE NOS [F41.1] INVALID FOR* More... 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 Unspecified Backache [M54.9] INVALID FOR*12/28/2009 Impaired fasting glucose [R73.01] INVALID FOR*12/26/2011 Insomnia [G47.00] INVALID FOR* Headache disorder [R51] INVALID FOR* Unspecified high-risk [O09.90] INVALID FOR*05/27/2012 More... Gestational diabetes mellitus, class A1 [O24.41*INVALID FOR*05/27/2012 More... History of shoulder dystocia in prior *INVALID FOR*05/27/2012 More... Sterilization [Z30.2] INVALID FOR* More... Abnormal maternal glucose tolerance, with deliv*INVALID FOR* Obesity, Class III, BMI 40-49.9 (morbid obesity*INVALID FOR* Carpal tunnel syndrome, bilateral [G56.03] INVALID FOR* Prescriptions ordered this encounter Disp Refills Start End GABAPENTIN 800 MG TABLET 90 t* 5 07/27/2018 01/23/2019 Route: ORAL Sig: Take 1 tablet by mouth three times daily for 180 days. Medications Discontinued During This Encounter venlafaxine ER (EFFEXOR XR) 75 mg 24* 30 c* 0 03/27/2018 07/27/2018 Route: ORAL Sig: Take 1 capsule by mouth once daily. Disc: Duplicate Entry gabapentin (NEURONTIN) 600 mg tablet 90 t* 5 05/19/2018 07/27/2018 Route: ORAL Sig: Take 1 tablet by mouth three times daily for 180 days. Disc: Reason for discontinue is not on file. Disposition: Return in about 3 months (around 10/27/2018) for Carpal tunnel, Axiety f/u. Follow-up and Disposition History Recorded Encounter Status:Closed by SURAJ HEALY CNP on 07/27/18 PROGRESS Observed: 07/23/2018 Status: COMPLETED Source: [place] 9:57 AM [facility] [place] REPOSITORY HNO ID: [id number] Author: Garcia (Mark) Alexey Service: (none) Author Type: Physical Therapist Type: Progress Notes Filed: 07/23/2018 10:17 AM Note Text: Episode Visit Count: 2 Therapist That Will Oversee The Plan Of Care: Garcia Blackburn Start of Care Date: 07/08/18 Plan of Care Certification Date: 07/08/18 REHABILITATION AND SPORTS THERAPY PHYSICAL THERAPY TREATMENT NOTE ASSESSMENT: Carlos Foley demonstrated good tolerance to manual techniques , with forearm stretching and nerve glides increasing pain currently- these exercises will be ceased moving forward. The patient will continue to benefit from continued skilled physical therapy for manual techniques and progressive exercises to ease symptoms and return to prior level of function. PLAN FOR NEXT VISIT: assess carry over, continue manual prn and assess patient's progress in HEP compliance SUBJECTIVE: pt feels the shoulder stretch has helped ease pain in the shoulders and upper arms, but she has been having a lot of tingling and numbness in the forearms and hands. She especially gets it with certain positions- IE driving, sleeping, or any position where her elbow is flexed up and pinned to her side. Pain Score: 6/10 Pain Location: Hand - Left;Hand - Right Description: Aching;Sore Frequency: Continuous OBJECTIVE MEASURES WITH LEVEL OF FUNCTION: Tenderness and high mm tone quality on B forearms pronators and extensor complex TREATMENT: Therapeutic Exercise: 1: Pec minor stretch 2x30 sec/side 2: B forearm flexor stretch 2x30 sec 3: Median N glides- bump on, bump off [id number] until symptoms plateau Skilled Intervention: Patient was educated in proper exercise technique and purpose for exercises. Skilled judgment was provided in selection of appropriate interventions. Provided written instruction for home exercise program to facilitate proper performance and compliance. Correct performance of therapeutic exercises was facilitated with verbal and visual cuing. Manual Therapy: 1: IASTM to B forearms with push to pt tolerance until symptoms subside x32 min total Skilled Intervention: Manual skills to improve joint mobility, ROM, and decrease pain. Utilized anatomy knowledge of the therapist, and assessment of patient's response to intervention. Billing: [facility]: Therapeutic Exercise ([id number]): 1:1 time: 8 minutes (1 unit: 8-22 mins) Manual Therapy (10136): 1:1 time: 32 minutes (2 units: 23- 37 mins) Total time: 40 minutes Garcia Blackburn PT CNTHERAPY Observed: 07/22/2018 Status: COMPLETED Source: [place] 2:30 PM [facility] REPOSITORY OT/PT/Speech Visit (PTWS) CARLOS FOLEY ([id number]) 1980 F Date Time Provider Department 07/22/18 2:30 PM GARCIA BLACKBURN (PT) PTWS Date Time Provider Department Center 07/22/2018 2:30 PM [id number], SEAN (PT)PTWS [facility] Reason for Visit: Physical Therapy [503] Primary Visit Diagnosis:Carpal tunnel syndrome, bilateral [G56.03] Allergies As of Date: 07/22/2018 Noted Allergy Reaction PROZAC (FLUOXETINE HCL) 02/27/2018 14 - Other: See Comments Comments: Caused insomnia VIOXX (ROFECOXIB) 05/25/2007 7 - Swelling Comments: tongue and throat swell Date Reviewed: 06/15/2018 Reviewed by: Teresita Salgado Hi Lift Operator - Fully Assessed Prescriptions as of 07/22/2018 Sig: CLONAZEPAM 1 MG TABLET Take 1 tablet by mouth once d* ETODOLAC 400 MG TABLET Take 1 tablet by mouth twice * VENLAFAXINE ER 75 MG CAPSULE,* TAKE 1 CAPSULE BY MOUTH EVERY* GABAPENTIN 600 MG TABLET Take 1 tablet by mouth three * VENLAFAXINE ER 75 MG CAPSULE,* Take 1 capsule by mouth once * SUMATRIPTAN 50 MG TABLET Take 1 tablet by mouth as nee* Progress Notes: Garcia Blackburn, PT 07/23/2018 10:17 AM Signed Episode Visit Count: 2 Therapist That Will Oversee The Plan Of Care: Garcia Blackburn Start of Care Date: 07/08/18 Plan of Care Certification Date: 07/08/18 REHABILITATION AND SPORTS THERAPY PHYSICAL THERAPY TREATMENT NOTE ASSESSMENT: Carlos Foley demonstrated good tolerance to manual techniques , with forearm stretching and nerve glides increasing pain currently- these exercises will be ceased moving forward. The patient will continue to benefit from continued skilled physical therapy for manual techniques and progressive exercises to ease symptoms and return to prior level of function. PLAN FOR NEXT VISIT: assess carry over, continue manual prn and assess patient's progress in HEP compliance SUBJECTIVE: pt feels the shoulder stretch has helped ease pain in the shoulders and upper arms, but she has been having a lot of tingling and numbness in the forearms and hands. She especially gets it with certain positions- IE driving, sleeping, or any position where her elbow is flexed up and pinned to her side. Pain Score: 6/10 Pain Location: Hand - Left;Hand - Right Description: Aching;Sore Frequency: Continuous OBJECTIVE MEASURES WITH LEVEL OF FUNCTION: Tenderness and high mm tone quality on B forearms pronators and extensor complex TREATMENT: Therapeutic Exercise: 1: Pec minor stretch 2x30 sec/side 2: B forearm flexor stretch 2x30 sec 3: Median N glides- bump on, bump off [id number] until symptoms plateau Skilled Intervention: Patient was educated in proper exercise technique and purpose for exercises. Skilled judgment was provided in selection of appropriate interventions. Provided written instruction for home exercise program to facilitate proper performance and compliance. Correct performance of therapeutic exercises was facilitated with verbal and visual cuing. Manual Therapy: 1: IASTM to B forearms with push to pt tolerance until symptoms subside x32 min total Skilled Intervention: Manual skills to improve joint mobility, ROM, and decrease pain. Utilized anatomy knowledge of the therapist, and assessment of patient's response to intervention. Billing: [facility]: Therapeutic Exercise ([id number]): 1:1 time: 8 minutes (1 unit: 8-22 mins) Manual Therapy ([id number]): 1:1 time: 32 minutes (2 units: 23- 37 mins) Total time: 40 minutes Garcia Blackburn PT PROGRESS Observed: 07/12/2018 Status: COMPLETED Source: [place] 7:44 PM [facility] [place] REPOSITORY HNO ID: [id number] Author: Garcia Montoya) Alexey Service: (none) Author Type: Physical Therapist Type: Progress Notes Filed: 07/12/2018 8:06 PM Note Text: Episode Visit Count: 1 Therapist That Will Oversee The Plan Of Care: Garcia Blackburn Start of Care Date: 07/08/18 Plan of Care Certification Date: 07/08/18 Patient Identified by Name and Date of : Yes REHABILITATION AND SPORTS THERAPY PHYSICAL THERAPY EVALUATION PLAN OF CARE: Assessment: Carlos Foley presents with the chief complaint of B hand and arm pain L>R. She presents with impairments of median nerve irritation, C8-T1 motor weakness, decreased flexibility in pec minor, forearm and wrist bilaterally, and activity tolerance restrictions of lifting, gripping, and carrying. She may benefit from skilled therapy services to improve the above mentioned deficits to decrease pain and improve activity tolerance. Prognosis: Good Good due to: current objective clinical presentation;good overall health status Goals for Episode of Care: created on 07/08/18 through 09/11/18 [place] in home exercise program. Patient will decrease pain rating by 2 points to meet minimal clinical important difference for numeric pain rating scale. Patient will increase strength of L C8-T1 to 5/5 to allow for return to prior functional status and perform ADLs. Patient will increase flexibility of B pec minor and forearm flexors to WNL to restore normal mechanics and decrease pain. Perform lifting and carrying without pain. Planned Interventions, Frequency, and Duration: Current Frequency: 2x/week Duration: 4 weeks Total Number of Visits Planned: 8 Planned Treatment Interventions: Therapeutic exercise;Manual therapy;Self-shelter management;Patient/Family/Caregiver Education PLAN FOR NEXT VISIT: Assess carry over of exercises, manual to pec minor and forearms, median N glides Patient demonstrates good understanding of plan of care and treatment. The above goals and plan of care were discussed and agreed upon by patient/family. SUBJECTIVE: Carlos Foley is a 38 year old female seen today for bilateraly pain in both hands, worse in left (pt is left hand dominant. Pt gets numbness from hand to elbow, to shoulder. Pt has a lot of pain and sensitivity in the hand/wrist on left. Right side just hurts in the hand. any sort of gripping, lifting, carrying, driving, etc all cause the symptoms. Its really bad at night trying to sleep as well. Pain Score: 6/10 Pain Location: Hand - Left;Hand - Right Description: Aching;Sore;Sharp;Burning Frequency: Continuous OBJECTIVE MEASURES WITH LEVEL OF FUNCTION: Elbow Observations L Elbow/Wrist Palpation Tenderness: (left pec minor tenderness/pain/reproduction of symptoms) UE AROM L UE AROM: decreased L forearm flexor flexibility UE and Cervical Strength R Elbow Flexion (C6): 5/5 R Elbow Extension (C7): 5/5 R Vallez Filter Operator (Position 2) (lbs): 90 R Thumb Extension (C8): 5/5 R Finger Adduction/Interossei (T1): 5/5 L Elbow Flexion (C6): 5/5 L Elbow Extension (C7): 5/5 L Vallez Filter Operator (Position 2) (lbs): 85 L Thumb Extension (C8): 4+/5 L Finger Adduction/Interossei (T1): 4+/5 Special Tests - Elbow Elbow/Wrist Special Tests: Tinel's Sign;Special Test Comments Tinel's Sign: Right negative;Left negative Special Test Comments: (negative addisions test B) Education: TREATMENT: Evaluation Therapeutic Exercise: Skilled Intervention: Patient was educated in proper exercise technique and purpose for exercises. Skilled judgment was provided in selection of appropriate interventions. Provided written instruction for home exercise program to facilitate proper performance and compliance. Correct performance of therapeutic exercises was facilitated with verbal and visual cuing. Jacieling: [facility]: Evaluation - Low Complexity ([id number]) Therapeutic Exercise ([id number]): 1:1 time: 10 minutes (1 unit: 8-22 mins) Total time: 45 minutes Garcia Blackburn PT CNTHERAPY Observed: 07/08/2018 Status: COMPLETED Source: [place] 11:15 AM [facility] REPOSITORY OT/PT/Speech Visit (PTWS) CARLOS FOLEY ([id number]) 1980 F Date Time Provider Department 07/08/18 11:15 AM GARCIA BLACKBURN (PT) PTRONNIE Date Time Provider Department Center 07/08/2018 11:15 AM [id number], SEAN (PT)PTWS [facility] Reason for Visit: PT Eval [747] Physical Therapy [503] Primary Visit Diagnosis:Carpal tunnel syndrome, bilateral [G56.03] Allergies As of Date: 07/08/2018 Noted Allergy Reaction PROZAC (FLUOXETINE HCL) 02/27/2018 14 - Other: See Comments Comments: Caused insomnia VIOXX (ROFECOXIB) 05/25/2007 7 - Swelling Comments: tongue and throat swell Date Reviewed: 06/15/2018 Reviewed by: Teresita Salgado Hi Lift Operator - Fully Assessed Prescriptions as of 07/08/2018 Sig: VENLAFAXINE ER 75 MG CAPSULE,* TAKE 1 CAPSULE BY MOUTH EVERY* MELOXICAM 15 MG TABLET Take 1 tablet by mouth once d* CLONAZEPAM 1 MG TABLET Take 1 tablet by mouth once d* GABAPENTIN 600 MG TABLET Take 1 tablet by mouth three * VENLAFAXINE ER 75 MG CAPSULE,* Take 1 capsule by mouth once * SUMATRIPTAN 50 MG TABLET Take 1 tablet by mouth as nee* Progress Notes: Garcia Blackburn PT 07/12/2018 8:06 PM Signed Episode Visit Count: 1 Therapist That Will Oversee The Plan Of Care: Garcia Blackburn Start of Care Date: 07/08/18 Plan of Care Certification Date: 07/08/18 Patient Identified by Name and Date of : Yes REHABILITATION AND SPORTS THERAPY PHYSICAL THERAPY EVALUATION PLAN OF CARE: Assessment: Carlos Foley presents with the chief complaint of B hand and arm pain L>R. She presents with impairments of median nerve irritation, C8-T1 motor weakness, decreased flexibility in pec minor, forearm and wrist bilaterally, and activity tolerance restrictions of lifting, gripping, and carrying. She may benefit from skilled therapy services to improve the above mentioned deficits to decrease pain and improve activity tolerance. Prognosis: Good Good due to: current objective clinical presentation;good overall health status Goals for Episode of Care: created on 07/08/18 through 09/11/18 [place] in home exercise program. Patient will decrease pain rating by 2 points to meet minimal clinical important difference for numeric pain rating scale. Patient will increase strength of L C8-T1 to 5/5 to allow for return to prior functional status and perform ADLs. Patient will increase flexibility of B pec minor and forearm flexors to WNL to restore normal mechanics and decrease pain. Perform lifting and carrying without pain. Planned Interventions, Frequency, and Duration: Current Frequency: 2x/week Duration: 4 weeks Total Number of Visits Planned: 8 Planned Treatment Interventions: Therapeutic exercise;Manual therapy;Self-shelter management;Patient/Family/Caregiver Education PLAN FOR NEXT VISIT: Assess carry over of exercises, manual to pec minor and forearms, median N glides Patient demonstrates good understanding of plan of care and treatment. The above goals and plan of care were discussed and agreed upon by patient/family. SUBJECTIVE: Carlos Foley is a 38 year old female seen today for bilateraly pain in both hands, worse in left (pt is left hand dominant. Pt gets numbness from hand to elbow, to shoulder. Pt has a lot of pain and sensitivity in the hand/wrist on left. Right side just hurts in the hand. any sort of gripping, lifting, carrying, driving, etc all cause the symptoms. Its really bad at night trying to sleep as well. Pain Score: 6/10 Pain Location: Hand - Left;Hand - Right Description: Aching;Sore;Sharp;Burning Frequency: Continuous OBJECTIVE MEASURES WITH LEVEL OF FUNCTION: Elbow Observations L Elbow/Wrist Palpation Tenderness: (left pec minor tenderness/pain/reproduction of symptoms) UE AROM L UE AROM: decreased L forearm flexor flexibility UE and Cervical Strength R Elbow Flexion (C6): 5/5 R Elbow Extension (C7): 5/5 R Vallez Filter Operator (Position 2) (lbs): 90 R Thumb Extension (C8): 5/5 R Finger Adduction/Interossei (T1): 5/5 L Elbow Flexion (C6): 5/5 L Elbow Extension (C7): 5/5 L Vallez Filter Operator (Position 2) (lbs): 85 L Thumb Extension (C8): 4+/5 L Finger Adduction/Interossei (T1): 4+/5 Special Tests - Elbow Elbow/Wrist Special Tests: Tinel's Sign;Special Test Comments Tinel's Sign: Right negative;Left negative Special Test Comments: (negative addisions test B) Education: TREATMENT: Evaluation Therapeutic Exercise: Skilled Intervention: Patient was educated in proper exercise technique and purpose for exercises. Skilled judgment was provided in selection of appropriate interventions. Provided written instruction for home exercise program to facilitate proper performance and compliance. Correct performance of therapeutic exercises was facilitated with verbal and visual cuing. Billing: [facility]: Evaluation - Low Complexity ([id number]) Therapeutic Exercise ([id number]): 1:1 time: 10 minutes (1 unit: 8-22 mins) Total time: 45 minutes Garcia Blackburn PT CAROL Observed: 06/18/2018 Status: COMPLETED Source: [place] 12:00 AM [facility] REPOSITORY Telephone (FAMPWS) CARLOS FOLEY ([id number]) 1980 F Date Time Provider Department 06/18/18 NITIN WISDOM During your visit today, we recorded the following information about you: Teresita Salmeron Joseph Mckeon 06/18/2018 12:11 PM Signed Disability forms and office notes were completed and faxed to [phone] , copy has been sent to scanning Teresita Jaron Salgado Cma Teresita Salmeron Joseph Mckeon 06/18/2018 12:13 PM Signed Original is in file behind nurses desk in Suraj Healy's office Teresita Salgado Cma Allergies As of Date: 06/18/2018 Noted Allergy Reaction PROZAC (FLUOXETINE HCL) 02/27/2018 14 - Other: See Comments Comments: Caused insomnia VIOXX (ROFECOXIB) 05/25/2007 7 - Swelling Comments: tongue and throat swell Date Reviewed: 06/15/2018 Reviewed by: Teresita Salgado Cma - Fully Assessed Reason for Visit: Forms [913] Prescriptions as of 06/18/2018 Sig: VENLAFAXINE ER 75 MG CAPSULE,* TAKE 1 CAPSULE BY MOUTH EVERY* MELOXICAM 15 MG TABLET Take 1 tablet by mouth once d* CLONAZEPAM 1 MG TABLET Take 1 tablet by mouth once d* GABAPENTIN 600 MG TABLET Take 1 tablet by mouth three * VENLAFAXINE ER 75 MG CAPSULE,* Take 1 capsule by mouth once * SUMATRIPTAN 50 MG TABLET Take 1 tablet by mouth as nee* Problem List As Of Date 06/18/2018 Noted Resolved Supervision of Other Normal [Z34.80] INVALID FOR*12/28/2009 Surveillance of other previously prescribed con*INVALID FOR*12/26/2011 ANXIETY STATE NOS [F41.1] INVALID FOR* More... 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 Unspecified Backache [M54.9] INVALID FOR*12/28/2009 Impaired fasting glucose [R73.01] INVALID FOR*12/26/2011 Insomnia [G47.00] INVALID FOR* Headache disorder [R51] INVALID FOR* Unspecified high-risk [O09.90] INVALID FOR*05/27/2012 More... Gestational diabetes mellitus, class A1 [O24.41*INVALID FOR*05/27/2012 More... History of shoulder dystocia in prior *INVALID FOR*05/27/2012 More... Sterilization [Z30.2] INVALID FOR* More... Abnormal maternal glucose tolerance, with deliv*INVALID FOR* Obesity, Class III, BMI 40-49.9 (morbid obesity*INVALID FOR* Encounter Status:Closed by JOSEPH MCKEON TERESITA Jaron on 06/18/18 BENZO CONFIRM, URINE Collected: 06/15/2018 Status: F Source: [place] 9:15 AM [facility] REPOSITORY TYPE CODE TESTS RESULT OUT OF REFERENCE UNITS RANGE LAB UAMCLZ <40 ng/mL <40 7aminoclonaz epam, Ur Result Comment: This sample was processed past the recommended stability for 7Aminoclonazepam, which may result in a false negative result. Interpret result with caution. All other analytes were process ed within the recommended stability. 7-Hncgr-kkyrmbwyoh is the primary metabolite of clonazepam (Klonopin). Presence of 6-Kjxay-ihzpqcgsph indicates use of clonazepam- containing drugs. LAB UOHTRI <40 ng/mL Alpha hydroxytri, Ur <40 Result Comment: Alpha-hydroxtriazolam is the primary metabolite of triazolam (Halcion). Presence of alpha-hydroxytriazolam indicates use of triazolam-containing drugs. LAB UOXAZP <40 ng/mL Oxazepam, Urine <40 Result Comment: Oxazepam may arise from oxazepam-containing drugs or by metabolism from many benzodiazepines including Medazepam (Nobrium), Clorazepate (Tranxene), Halazepam (Paxipam), Prazepam (Centrax), Chlordiazepoxide (Librium), Pinazepam (Domar), and Diazepam (Valium). LAB UOHALP <60 ng/mL Alpha hydroxyalp, Ur <60 Result Comment: Alpha-hydroxalprazolam is the primary metabolite of alprazolam (Xanax). Presence of alpha-hydroxalprazolam indicates use of alprazolam-containing drugs. LAB ULORZP <40 ng/mL Lorazepam, Urine <40 Result Comment: Presence of lorazepam indicates use of lorazepam-containing drugs. LAB UNDIAZ <40 ng/mL Nordiazepam, Urine <40 Result Comment: Nordiazepam may arise from nordiazepam-containing drugs or by metabolism of many benzodiazepines including Medazepam (Nobrium), Clorazepate (Tranxene), Halazepam (Paxipam), Prazepam (Centrax), Chlordiazepoxide (Librium), Pinazepam (Domar), and Diazepam (Valium). Nordiazepam is metabolized to oxazepam. LAB UTEMZ <40 ng/mL Temazepam, Urine <40 Result Comment: Temazepam may arise from temazepam-containing drugs or by metabolism from many benzodiazepines including Medazepam (Nobrium), Clorazepate (Tranxene), Halazepam (Paxipam), Prazepam (Centrax), Chlordiazepoxide (Librium), Pinazepam (Domar), and Diazepam (Valium). Temazepam is metabolized to oxazepam. LAB SVCR02 42.2-237.9 mg/dL CREATININE,URINE 100.4 LAB SVPH02 4.5-8.0 PH,URINE 6.6 LAB SVSG02 1.002-1.030 SPEC GRAVITY,UR 1.015 LAB SVOX02 <200 mg/L OXIDANTS,URINE <38 LAB SVNI02 <51 mg/L NITRITES,URINE <50 LAB SVCH02 <50 mg/L CHROMATE,URINE <10 LAB SVSQ02 QUALITY,URINE Specimen quality results within acceptable limits. LAB UVNOTE Benzo Confirm, Note This test is for Medical use only. Result Comment: This test was developed and its performance characteristics determined by [facility]'s Zachery Gupta [facility] [place] ([facility]). It has not been cleared or approved by the FDA. [facility] is regulated under CLIA as qualified to perform high-complexity testing. This test is used for clinical purposes. It should not be regarded as investigational or for research. Performed By: #### UBENZ #### [facility] [address] [place] [id number] QUANT PAIN PANEL, Collected: 06/15/2018 Status: F Source: [facility] 9:14 AM [facility] REPOSITORY TYPE CODE TESTS RESULT OUT OF REFERENCE UNITS RANGE LAB UQCANN <16 ng/mL <16 Cannabinoid, Urine Result Comment: Tetrahydrocannabinol carboxylic acid (THCA) is a metabolite of vuisq-5-lnxerzpiccweathzduby which is the main active component of marijuana. LAB UQBNZL <24 ng/mL Benzoylecognine, Ur <24 Result Comment: Benzoylecognine is a metabolite of cocaine. LAB UQACMR <5 ng/mL 6-Acetylmorphine, Ur <5 Result Comment: 6-JOE (6-monoacetylmorphine, also known as 6-acetylmorphine) is a unique metabolite of heroin. Presence of 6-JOE indicates use of heroin. 6-JOE is further metabolized to morphine and absence of 6-JOE does not rule out the use of heroin. LAB UQAMPH <5 ng/mL Amphetamine, Urine <5 LAB UQMAMP <8 ng/mL Methamphetamine, Ur <8 LAB UQBUPR <20 ng/mL Buprenorphine, Ur <20 LAB UQNBUP <20 ng/mL Norbuprenorphine, Ur <20 Result Comment: Norbuprenorphine is the primary active metabolite of buprenorphine. LAB UQMTHD <16 ng/mL Methadone, Urine <16 LAB UQEDDP <6 ng/mL EDDP, Urine <6 Result Comment: EDDP is a metabolite of methadone. LAB UQTRAM <25 ng/mL Tramadol, Urine <25 LAB UQDTRM <20 ng/mL Desmethyltramadol <20 ,Ur Result Comment: Desmethyltramadol is a metabolite of tramadol. LAB UQFNTL <6 ng/mL Fentanyl, Urine <6 LAB UQNFTL <6 ng/mL Norfentanyl, Urine <6 Result Comment: Norfentanyl is a metabolite of fentanyl. LAB UQCODE <11 ng/mL Codeine, Urine <11 LAB UQMORP <10 ng/mL Morphine, Urine <10 Result Comment: Morphine is a metabolite of codeine and heroin. LAB UQDCDN <5 ng/mL Dihydrocodeine, Ur <5 LAB UQHCOD <8 ng/mL Hydrocodone, Urine <8 Result Comment: Hydrocodone is a metabolite of dihydrocodeine. LAB UQOXYC <10 ng/mL Oxycodone, Urine <10 LAB UQHMOR <5 ng/mL Hydromorphone, Ur <5 Result Comment: Hydromorphone is a metabolite of hydrocodone. LAB UQOXYM <5 ng/mL Oxymorphone, Urine <5 Result Comment: Oxymorphone is a metabolite of oxycodone. LAB UQCREA 42.2-237.9 mg/dL Creatinine, 100.9 Urine LAB UQPH 4.5-8.0 pH, Urine 6.6 LAB UQSPGR 1.002-1.030 Specific 1.015 [place] LAB UQOXID <200 mg/L Oxidants, <38 Urine LAB SVNI01 <51 mg/L <50 NITRITES,URINE LAB SVCH01 <50 mg/L <10 CHROMATE,URINE LAB SVSQ01 Specimen QUALITY,URINE quality results within acceptable limits. LAB UQNOTE Note This test is for Medical use only. Result Comment: This test was developed and its performance characteristics determined by [facility]'s Zachery Alonso [facility] Pathology [facility] Laboratory Medicine [place] ([facility]). It has not been cleared or approved by the FDA. [facility] is regulated under CLIA as qualified to perform high-complexity testing. This test is used for clinical purposes. It should not be regarded as investigational or for research. Performed By: #### UQNTPP #### [facility] [address] [address] PROGRESS Observed: 06/15/2018 Status: COMPLETED Source: ARABI 8:39 AM [facility] REPOSITORY HNO ID: [id number] Author: Suraj Healy Service: (none) Author Type: Nurse Practitioner Type: Progress Notes Filed: 06/15/2018 9:02 AM Note Text: Chief Complaint Patient presents with: Musculoskeletal Problem: both - up to left shoulder HPI Carlos Foley is a 37 year old female who presents here today for Above Complaints. Patient presents to the office for evaluation of carpal tunnel syndrome. This has been bother her for over one year. Has difficulty with lifting 50-60 pound boxes. She is dropping items, having difficulty with ADLs. Both hands are effected but her left arm is worst. She is left handed. Pain radiates from her wrist to the elbow and then to the shoulder. Does keep her up at night. She does not have cock up splints. No inflammatories. She has been scheduled for orthopedics but does not have an appointment due to needing an EMG completed first. She is going to call today to get the EMG scheduled and then she will call to make another appointment with orthopedics. Past medical history, appointments, medications, allergies reviewed. Previous Medical History PAST MEDICAL HISTORY Diagnosis Date - Infectious mononucleosis 1997 - Personal history of tuberculosis diagnoses with [facility] age 10 [facility], concurrent with father's disease Previous Surgical History PAST SURGICAL HISTORY Procedure Laterality Date - ESSURE 06/22/2012 Dr Sanders Family History FAMILY HISTORY Problem Relation Age of Onset - Hypertension Mother - Hypertension Maternal Grandmother - Hypertension Maternal Grandfather - Cancer Paternal Grandmother pancreatic - Hypertension Father - Diabetes Maternal Uncle - Diabetes Maternal Uncle Patient Allergies ALLERGIES Allergen Reactions - Prozac [Fluoxetine * Other: See Comments Caused insomnia - Vioxx [Rofecoxib] Swelling tongue and throat swell Current Medications Current Outpatient Prescriptions on File Prior to Visit: clonazePAM (KLONOPIN) 1 mg tablet Take 1 tablet by mouth once daily as needed for up to 30 days. gabapentin (NEURONTIN) 600 mg tablet Take 1 tablet by mouth three times daily for 180 days. venlafaxine ER (EFFEXOR XR) 75 mg 24 hr capsule TAKE ONE CAPSULE BY MOUTH ONCE DAILY venlafaxine ER (EFFEXOR XR) 75 mg 24 hr capsule Take 1 capsule by mouth once daily. SUMAtriptan (IMITREX) 50 mg tablet Take 1 tablet by mouth as needed for Migraine Headache (see administration instructions). No current facility-administered medications on file prior to visit. 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 Reviewed relevant PMHx, PSHx, Social Hx, current medications and allergies. EXAM: BP 102/80 Pulse 80 Temp 36.7 ?C (98 ?F) (Tympanic) Wt 101.6 kg (224 lb) BMI 36.99 kg/m? General Appearance: Well appearing, alert, in no acute distress, well-hydrated, well nourished.. Lungs: Lungs clear to auscultation. No wheezing, rhonchi, rales. Heart: RRR without murmur, gallop, or rubs. No ectopy. Musculoskeletal: Right wrist: No structural deformity. Negative Tinels sign. Positive Wes, Pain is increased with flexion and extension of the wrist. Left wrist: No structural deformity, Positive Tinel's signs, Positive wes. Positive Phalen sign bilaterally. Health Maintenance List DTAP,TDAP,TD(2 - Tdap) due on 2001 HPV EVERY 5 YEARS due on 2012 PAP EVERY 5 YEARS due on 08/19/2016 INFLUENZA(1) due on 06/06/2018 Data reviewed Component Latest Ref Rng AND Units 06/22/2012 10/21/2016 Glucose 74 - 99 mg/dL 102 (H) BUN 7 - 21 mg/dL 10 Creatinine 0.58 - 0.96 mg/dL 0.80 Sodium 136 - 144 mmol/L 140 Potassium 3.7 - 5.1 mmol/L 4.1 Chloride 97 - 105 mmol/L 103 CO2 22 - 30 mmol/L 24 Anion Gap 9 - 18 mmol/L 13 Calcium 8.6 - 10.0 mg/dL 8.9 eGFR- >60 eGFR-All Other Races . >60 WBC, [place] 3.7 - 11.0 k/uL 6.9 RBC, [place] 3.90 - 5.20 m/uL 4.61 Hemoglobin, [place] 11.5 - 15.5 g/dL 14.0 Hematocrit, [place] 36.0 - 46.0 % 40.0 MCV, [place] 80.0 - 100.0 fL 86.8 MCH, [place] 26.0 - 34.0 pg 30.4 MCHC, [place] 30.5 - 36.0 g/dL 35.0 RDW, [place] 11.5 - 15.0 % 14.6 Platelet Cnt, [place] 150 - 400 k/uL 244 MPV, [place] 9.0 - 12.7 fL 11.4 T4 5.5 - 10.2 ug/dL 6.4 T4 Uptake 0.91 - 1.19 0.98 FTI 5.3 - 10.8 ug/dL 6.5 TSH 0.400 - 5.500 uU/mL 0.901 ASSESSMENT/PLAN: 1. Carpal tunnel syndrome, bilateral - ICD9: 354.0, ICD10: G56.03 - Letter for work excuse given. - Patient is placed in bilateral cock up splints. - Number to schedule EMG given. - CONSULT TO PHYSICAL THERAPY - MELOXICAM 15 MG TABLET Follow up in 6 weeks, sooner if needed. Suraj Healy APRN.CNP CNOV Observed: 06/15/2018 Status: COMPLETED Source: ARABI 8:20 AM [facility] REPOSITORY [facility] CARLOS FOLEY ([id number]) 1980 F Date Time Provider Department 06/15/18 8:20 AM [facility] During your visit today, we recorded the following information about you: Temperature Pulse Blood pressure Weight 98 degrees 80/minute 102/80 101.6 kg Suraj Healy APRN.CNP 06/15/2018 9:02 AM Signed Chief Complaint Patient presents with: Musculoskeletal Problem: both - up to left shoulder HPI Carlos Foley is a 37 year old female who presents here today for Above Complaints. Patient presents to the office for evaluation of carpal tunnel syndrome. This has been bother her for over one year. Has difficulty with lifting 50-60 pound boxes. She is dropping items, having difficulty with ADLs. Both hands are effected but her left arm is worst. She is left handed. Pain radiates from her wrist to the elbow and then to the shoulder. Does keep her up at night. She does not have cock up splints. No inflammatories. She has been scheduled for orthopedics but does not have an appointment due to needing an EMG completed first. She is going to call today to get the EMG scheduled and then she will call to make another appointment with orthopedics. Past medical history, appointments, medications, allergies reviewed. 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 Previous Surgical History PAST SURGICAL HISTORY Procedure Laterality Date - ESSURE 06/22/2012 Dr Sanders Family History FAMILY HISTORY Problem Relation Age of Onset - Hypertension Mother - Hypertension Maternal Grandmother - Hypertension Maternal Grandfather - Cancer Paternal Grandmother pancreatic - Hypertension Father - Diabetes Maternal Uncle - Diabetes Maternal Uncle Patient Allergies ALLERGIES Allergen Reactions - Prozac [Fluoxetine * Other: See Comments Caused insomnia - Vioxx [Rofecoxib] Swelling tongue and throat swell Current Medications Current Outpatient Prescriptions on File Prior to Visit: clonazePAM (KLONOPIN) 1 mg tablet Take 1 tablet by mouth once daily as needed for up to 30 days. gabapentin (NEURONTIN) 600 mg tablet Take 1 tablet by mouth three times daily for 180 days. venlafaxine ER (EFFEXOR XR) 75 mg 24 hr capsule TAKE ONE CAPSULE BY MOUTH ONCE DAILY venlafaxine ER (EFFEXOR XR) 75 mg 24 hr capsule Take 1 capsule by mouth once daily. SUMAtriptan (IMITREX) 50 mg tablet Take 1 tablet by mouth as needed for Migraine Headache (see administration instructions). No current facility-administered medications on file prior to visit. Social History Social History Marital status: Single Spouse name: MIRTA Years of education: 12 Number of children: 3 Occupational History Occupation Employer Comment [employer] Social History Main Topics Smoking status: Never Smoker Smokeless tobacco: Never Used Alcohol use: No Drug use: No Sexual activity: Not Currently Partners with: Male control/protection: Injection, None REVIEW OF SYSTEMS: as above ? Reviewed relevant PMHx, PSHx, Social Hx, current medications and allergies. EXAM: BP 102/80 Pulse 80 Temp 36.7 ?C (98 ?F) (Tympanic) Wt 101.6 kg (224 lb) BMI 36.99 kg/m? General Appearance: Well appearing, alert, in no acute distress, well-hydrated, well nourished.. Lungs: Lungs clear to auscultation. No wheezing, rhonchi, rales. Heart: RRR without murmur, gallop, or rubs. No ectopy. Musculoskeletal: Right wrist: No structural deformity. Negative Tinels sign. Positive Wes, Pain is increased with flexion and extension of the wrist. Left wrist: No structural deformity, Positive Tinel's signs, Positive wes. Positive Phalen sign bilaterally. Health Maintenance List DTAP,TDAP,TD(2 - Tdap) due on 2001 HPV EVERY 5 YEARS due on 2012 PAP EVERY 5 YEARS due on 08/19/2016 INFLUENZA(1) due on 06/06/2018 Data reviewed Component Latest Ref Rng AND Units 06/22/2012 10/21/2016 Glucose 74 - 99 mg/dL 102 (H) BUN 7 - 21 mg/dL 10 Creatinine 0.58 - 0.96 mg/dL 0.80 Sodium 136 - 144 mmol/L 140 Potassium 3.7 - 5.1 mmol/L 4.1 Chloride 97 - 105 mmol/L 103 CO2 22 - 30 mmol/L 24 Anion Gap 9 - 18 mmol/L 13 Calcium 8.6 - 10.0 mg/dL 8.9 eGFR- >60 eGFR-All Other Races . >60 WBC, [place] 3.7 - 11.0 k/uL 6.9 RBC, [place] 3.90 - 5.20 m/uL 4.61 Hemoglobin, [place] 11.5 - 15.5 g/dL 14.0 Hematocrit, [place] 36.0 - 46.0 % 40.0 MCV, [place] 80.0 - 100.0 fL 86.8 MCH, [place] 26.0 - 34.0 pg 30.4 MCHC, [place] 30.5 - 36.0 g/dL 35.0 RDW, [place] 11.5 - 15.0 % 14.6 Platelet Cnt, [place] 150 - 400 k/uL 244 MPV, [place] 9.0 - 12.7 fL 11.4 T4 5.5 - 10.2 ug/dL 6.4 T4 Uptake 0.91 - 1.19 0.98 FTI 5.3 - 10.8 ug/dL 6.5 TSH 0.400 - 5.500 uU/mL 0.901 ASSESSMENT/PLAN: 1. Carpal tunnel syndrome, bilateral - ICD9: 354.0, ICD10: G56.03 - Letter for work excuse given. - Patient is placed in bilateral cock up splints. - Number to schedule EMG given. - CONSULT TO PHYSICAL THERAPY - MELOXICAM 15 MG TABLET Follow up in 6 weeks, sooner if needed. Suraj Healy APRN.WATER SUPPLY ENGINEER Referring Provider: SELF [[id number]] Allergies As of Date: 06/15/2018 Noted Allergy Reaction PROZAC (FLUOXETINE HCL) 02/27/2018 14 - Other: See Comments Comments: Caused insomnia VIOXX (ROFECOXIB) 05/25/2007 7 - Swelling Comments: tongue and throat swell Date Reviewed: 06/15/2018 Reviewed by: Teresita Salgado Hi Lift Operator - Fully Assessed Reason for Visit: Musculoskeletal Problem [69] Cmt: both - up to left shoulder Primary Visit Diagnosis:Carpal tunnel syndrome, bilateral [G56.03] Order(s):CONSULT TO PHYSICAL THERAPY [9032] Order #: [id number]: 1 meloxicam (MOBIC) 15 mg tabletTake 1 tablet by mouth once daily. With food.Disp: 30 tabletRfl: 2 Prescriptions as of 06/15/2018 Sig: CLONAZEPAM 1 MG TABLET Take 1 tablet by mouth once d* GABAPENTIN 600 MG TABLET Take 1 tablet by mouth three * VENLAFAXINE ER 75 MG CAPSULE,* TAKE ONE CAPSULE BY MOUTH ONC* VENLAFAXINE ER 75 MG CAPSULE,* Take 1 capsule by mouth once * SUMATRIPTAN 50 MG TABLET Take 1 tablet by mouth as nee* MELOXICAM 15 MG TABLET Take 1 tablet by mouth once d* Problem List As Of Date 06/15/2018 Noted Resolved Supervision of Other Normal [Z34.80] INVALID FOR*12/28/2009 Surveillance of other previously prescribed con*INVALID FOR*12/26/2011 ANXIETY STATE NOS [F41.1] INVALID FOR* More... 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 Unspecified Backache [M54.9] INVALID FOR*12/28/2009 Impaired fasting glucose [R73.01] INVALID FOR*12/26/2011 Insomnia [G47.00] INVALID FOR* Headache disorder [R51] INVALID FOR* Unspecified high-risk [O09.90] INVALID FOR*05/27/2012 More... Gestational diabetes mellitus, class A1 [O24.41*INVALID FOR*05/27/2012 More... History of shoulder dystocia in prior *INVALID FOR*05/27/2012 More... Sterilization [Z30.2] INVALID FOR* More... Abnormal maternal glucose tolerance, with deliv*INVALID FOR* Obesity, Class III, BMI 40-49.9 (morbid obesity*INVALID FOR* Prescriptions ordered this encounter Disp Refills Start End MELOXICAM 15 MG TABLET 30 t* 2 06/15/2018 Route: ORAL Sig: Take 1 tablet by mouth once daily. With food. Disposition: Return in about 6 weeks (around 07/27/2018) for Carpal tunnel syndrome f/u. Follow-up and Disposition History Recorded Letter Text Suraj Healy APRN.[facility] [address], [place] [address] 06/15/2018 Carlos Foley [facility]# [id number] [address] [address] TO WHOM IT MAY CONCERN: This is to certify that Ms. Carlos Foley has been under my care for injury and was unable to work from June 16, 2018 through indefinitely until seen by orthopedics. Sincerely yours, Suraj Healy CNP Encounter Status:Closed by SURAJ HEALY CNP on 06/15/18 CNOV Observed: 04/01/2018 Status: COMPLETED Source: ARABI 3:40 PM [facility] REPOSITORY Office Visit ([facility]) CARLOS FOLEY ([id number]) 1980 F Date Time Provider Department 04/01/18 3:40 PM NITIN WISDOM [facility] During your visit today, we recorded the following information about you: Pulse Respiration Blood pressure Weight 92/minute 16/minute 118/84 100.7 kg Nitin Wisdom MD 04/01/2018 5:54 PM Signed Chief Complaint Patient presents with: F/U 1 month: Weight and Anxiety HPI Carlos Foley is a 37 year old female who presents here today for a 1 mo f/u. Weight - Recently completed 2nd Rx of Adipex, now onto 3rd month. Lost 6 lbs over the last month and losing 15 lbs total. Still continues to have curbed appetite, drinking a lot more water due to the heat at work and active with working out going to the gym 3 x per week. Eating more fresh fruits, no processed foods and canned vegetables. Denies any SE with medication. Anxiety - Pt states that its doing a little bit better and subsiding a little longer through out the day with using the Klonopin 1 mg 1 tab po in the am. Does well with Effexor 75 mg once daily. Past medical history, appointments, medications, allergies reviewed. Previous Medical History PAST MEDICAL HISTORY Diagnosis Date - Infectious mononucleosis 1997 - Personal history of tuberculosis diagnoses with active pulmonary tuberculosis at age 10 [facility], concurrent with father's disease Previous Surgical History PAST SURGICAL HISTORY Procedure Laterality Date - ESSURE 06/22/2012 Dr Sanders Family History FAMILY HISTORY Problem Relation Age of Onset - Hypertension Mother - Hypertension Maternal Grandmother - Hypertension Maternal Grandfather - Cancer Paternal Grandmother pancreatic - Hypertension Father - Diabetes Maternal Uncle - Diabetes Maternal Uncle Patient Allergies ALLERGIES Allergen Reactions - Prozac [Fluoxetine * Other: See Comments Caused insomnia - Vioxx [Rofecoxib] Swelling tongue and throat swell Current Medications Current Outpatient Prescriptions on File Prior to Visit: gabapentin (NEURONTIN) 600 mg tablet Take 1 tablet by mouth three times daily for 30 days. venlafaxine ER (EFFEXOR XR) 75 mg 24 hr capsule Take 1 capsule by mouth once daily. clonazePAM (KLONOPIN) 1 mg tablet Take 1 tablet by mouth once daily as needed for up to 30 days. SUMAtriptan (IMITREX) 50 mg tablet Take 1 tablet by mouth as needed for Migraine Headache (see administration instructions). No current facility-administered medications on file prior to visit. Social History Social History Marital status: Single Spouse name: MIRTA Years of education: 12 Number of children: 3 Occupational History Occupation Employer Comment [employer]* [employer] Social History Main Topics Smoking status: Never Smoker Smokeless tobacco: Never Used Alcohol use: No Drug use: No Sexual activity: Not Currently Partners with: Male control/protection: Injection, None EXAM: BP 118/84 (BP Site: Left Arm, BP Position: Sitting, BP Cuff Size: Regular Adult) Pulse 92 Resp 16 Wt 100.7 kg (222 lb) BMI 36.66 kg/m? General Appearance: Well appearing, alert, in no acute distress, well-hydrated, well nourished., Overweight. Lungs: Lungs clear to auscultation. No wheezing, rhonchi, rales. Heart: RRR without murmur, gallop, or rubs. No ectopy. Health Maintenance List DTAP,TDAP,TD(2 - Tdap) due on 2001 HPV EVERY 5 YEARS due on 2012 PAP EVERY 5 YEARS due on 08/19/2016 INFLUENZA(Season Ended) due on 06/06/2018 Data reviewed None ASSESSMENT/PLAN: 1. Obesity, Class II, BMI 35-39.9 - ICD9: 278.00, ICD10: E66.9 (primary diagnosis) - 3rd Rx given today - PHENTERMINE 37.5 MG TABLET 2. KP (generalized anxiety disorder) - ICD9: 300.02, ICD10: F41.1 - Continue current medication regimen. 1 mo f/u. Discuss other weight loss medications if interested. Nitin Wisdom MD The documentation for this note was completed by Cristina Burch Ma acting as scribe for Nitin Wisdom MD. April 01, 2018 3:34 PM. Referring Provider: SELF [[id number]] Allergies As of Date: 04/01/2018 Noted Allergy Reaction PROZAC (FLUOXETINE HCL) 02/27/2018 14 - Other: See Comments Comments: Caused insomnia VIOXX (ROFECOXIB) 05/25/2007 7 - Swelling Comments: tongue and throat swell Date Reviewed: 04/01/2018 Reviewed by: Cristina Burch Ma - Fully Assessed Reason for Visit: F/U 1 month [1175] Cmt: Weight and Anxiety Primary Visit Diagnosis:Obesity, Class II, BMI 35-39.9 [E66.9] Other Visit Diagnosis:KP (generalized anxiety disorder) [F41.1] Order(s):Phentermine HCl (ADIPEX-P) 37.5 mg tabletTake 1 tablet by mouth once daily for 30 days.Disp: 30 tabletRfl: 0 Prescriptions as of 04/01/2018 Sig: GABAPENTIN 600 MG TABLET Take 1 tablet by mouth three * VENLAFAXINE ER 75 MG CAPSULE,* Take 1 capsule by mouth once * CLONAZEPAM 1 MG TABLET Take 1 tablet by mouth once d* SUMATRIPTAN 50 MG TABLET Take 1 tablet by mouth as nee* PHENTERMINE 37.5 MG TABLET Take 1 tablet by mouth once d* Problem List As Of Date 04/01/2018 Noted Resolved Supervision of Other Normal [Z34.80] INVALID FOR*12/28/2009 Surveillance of other previously prescribed con*INVALID FOR*12/26/2011 ANXIETY STATE NOS [F41.1] INVALID FOR* More... 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 Unspecified Backache [M54.9] INVALID FOR*12/28/2009 Impaired fasting glucose [R73.01] INVALID FOR*12/26/2011 Insomnia [G47.00] INVALID FOR* Headache disorder [R51] INVALID FOR* Unspecified high-risk [O09.90] INVALID FOR*05/27/2012 More... Gestational diabetes mellitus, class A1 [O24.41*INVALID FOR*05/27/2012 More... History of shoulder dystocia in prior *INVALID FOR*05/27/2012 More... Sterilization [Z30.2] INVALID FOR* More... Abnormal maternal glucose tolerance, with deliv*INVALID FOR* Obesity, Class III, BMI 40-49.9 (morbid obesity*INVALID FOR* Prescriptions ordered this encounter Disp Refills Start End PHENTERMINE 37.5 MG TABLET 30 t* 0 04/01/2018 05/01/2018 Class: Print RX Cmt: BMI 36.66 Route: ORAL Sig: Take 1 tablet by mouth once daily for 30 days. Medications Discontinued During This Encounter gabapentin (NEURONTIN) 600 mg tablet 90 t* 0 01/28/2018 04/01/2018 Route: ORAL Sig: Take 1 tablet by mouth three times daily for 30 days. Disc: Course of therapy completed Phentermine HCl (ADIPEX-P) 37.5 mg t* 30 t* 0 02/27/2018 04/01/2018 Class: Print RX Cmt: BMI - 37.75 Route: ORAL Sig: Take 1 tablet by mouth once daily for 30 days. Disc: Reason for discontinue is not on file. Disposition: Return in about 4 weeks (around 04/29/2018). Follow-up and Disposition History Recorded Encounter Status:Closed by NITIN WISDOM MD on 04/01/18 PROGRESS Observed: 04/01/2018 Status: COMPLETED Source: ARABI 3:34 PM [facility] O ID: [id number] Author: Nitin Wisdom Service: (none) Author Type: Physician Type: Progress Notes Filed: 04/01/2018 5:54 PM Note Text: Chief Complaint Patient presents with: F/U 1 month: Weight and Anxiety HPI Carlos Foley is a 37 year old female who presents here today for a 1 mo f/u. Weight - Recently completed 2nd Rx of Adipex, now onto 3rd month. Lost 6 lbs over the last month and losing 15 lbs total. Still continues to have curbed appetite, drinking a lot more water due to the heat at work and active with working out going to the gym 3 x per week. Eating more fresh fruits, no processed foods and canned vegetables. Denies any SE with medication. Anxiety - Pt states that its doing a little bit better and subsiding a little longer through out the day with using the Klonopin 1 mg 1 tab po in the am. Does well with Effexor 75 mg once daily. Past medical history, appointments, medications, allergies reviewed. 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 Previous Surgical History PAST SURGICAL HISTORY Procedure Laterality Date - ESSURE 06/22/2012 Dr Sanders Family History FAMILY HISTORY Problem Relation Age of Onset - Hypertension Mother - Hypertension Maternal Grandmother - Hypertension Maternal Grandfather - Cancer Paternal Grandmother pancreatic - Hypertension Father - Diabetes Maternal Uncle - Diabetes Maternal Uncle Patient Allergies ALLERGIES Allergen Reactions - Prozac [Fluoxetine * Other: See Comments Caused insomnia - Vioxx [Rofecoxib] Swelling tongue and throat swell Current Medications Current Outpatient Prescriptions on File Prior to Visit: gabapentin (NEURONTIN) 600 mg tablet Take 1 tablet by mouth three times daily for 30 days. venlafaxine ER (EFFEXOR XR) 75 mg 24 hr capsule Take 1 capsule by mouth once daily. clonazePAM (KLONOPIN) 1 mg tablet Take 1 tablet by mouth once daily as needed for up to 30 days. SUMAtriptan (IMITREX) 50 mg tablet Take 1 tablet by mouth as needed for Migraine Headache (see administration instructions). No current facility-administered medications on file prior to visit. Social History Social History Marital status: Single Spouse name: MIRTA Years of education: 12 Number of children: 3 Occupational History Occupation Employer Comment [employer]* [employer] Social History Main Topics Smoking status: Never Smoker Smokeless tobacco: Never Used Alcohol use: No Drug use: No Sexual activity: Not Currently Partners with: Male control/protection: Injection, None EXAM: BP 118/84 (BP Site: Left Arm, BP Position: Sitting, BP Cuff Size: Regular Adult) Pulse 92 Resp 16 Wt 100.7 kg (222 lb) BMI 36.66 kg/m? General Appearance: Well appearing, alert, in no acute distress, well-hydrated, well nourished., Overweight. Lungs: Lungs clear to auscultation. No wheezing, rhonchi, rales. Heart: RRR without murmur, gallop, or rubs. No ectopy. Health Maintenance List DTAP,TDAP,TD(2 - Tdap) due on 2001 HPV EVERY 5 YEARS due on 2012 PAP EVERY 5 YEARS due on 08/19/2016 INFLUENZA(Season Ended) due on 06/06/2018 Data reviewed None ASSESSMENT/PLAN: 1. Obesity, Class II, BMI 35-39.9 - ICD9: 278.00, ICD10: E66.9 (primary diagnosis) - 3rd Rx given today - PHENTERMINE 37.5 MG TABLET 2. KP (generalized anxiety disorder) - ICD9: 300.02, ICD10: F41.1 - Continue current medication regimen. 1 mo f/u. Discuss other weight loss medications if interested. Nitin Wisdom MD The documentation for this note was completed by Cristina Burch Ma acting as scribe for Nitin Wisdom MD. April 01, 2018 3:34 PM. CNOV Observed: 02/27/2018 Status: COMPLETED Source: [place] 4:00 PM [facility] REPOSITORY Office Visit (FAMPWS) CARLOS FOLEY ([id number]) 1980 F Date Time Provider Department 02/27/18 4:00 PM NITIN WISDOM During your visit today, we recorded the following information about you: Pulse Respiration Blood pressure Weight 84/minute 16/minute 116/84 103.7 kg Nitin Wisdom MD 02/27/2018 4:40 PM Signed Chief Complaint Patient presents with: F/U 1 month: Weight HPI Carlos Foley is a 37 year old female who presents here today for a 1 mo f/u. Will be having a [place] tonight with her hinduism and going to [employer] as there Scientologist rents it out for 2 hours, celebrating her grandma's birthday on Friday, reunion on Friday and took 2 days off to do absolutely nothing (excited about those days). Weight - Pt here today for her second Rx of Adipex. Has lost 9 lbs over the first month. Does notice that her appetite is decreased, but doesn't go without eating. She is eating better instead of eating out of the vending machine, she is taking banana or a better choice of foods. She is controlling portion sizes due to not being hungry. Continues to do cardio 3 times per week at the gym, active at work, push mows her yard and will be opening her pool to start swimming. Side effect of dry mouth but chewing gum and drinking water. Minimal constipation. Currently taking Phentermine 37.5 mg 1 tab po once daily. Anxiety - With recent promotion of Coordinator at job, her work load is increasing due to Ware[employer] inventory coming down from another location. Over the last 2-3 weeks she is noticing the Valium 5 mg once daily is not holding her anxiety attacks. At last OV she discussed about changing to Klonopin and what the difference in medication was and feeling it may last her through the day. She takes pride in her work and stresses on messing up and panics easily. Has previously tried Prozac (unable to sleep) and Zoloft (no effect with medication). UTI's - Was seen at [facility] ER for UTI. Patient's family has a history of Kidney Failure and she has some concerns due to not voiding frequently. She is able to hold it for an extended amount of time, which is nothing unusual for her. Does drink plenty of fluids, 24 oz bottle water (refilling 3 times over the day). Past medical history, appointments, medications, allergies reviewed. Previous Medical History PAST MEDICAL HISTORY Diagnosis Date - Infectious mononucleosis 1997 - Personal history of tuberculosis diagnoses with active pulmonary tuberculosis at age 10 [facility], concurrent with father's disease Previous Surgical History PAST SURGICAL HISTORY Procedure Laterality Date - ESSURE 06/22/2012 Dr Sanders Family History FAMILY HISTORY Problem Relation Age of Onset - Hypertension Mother - Hypertension Maternal Grandmother - Hypertension Maternal Grandfather - Cancer Paternal Grandmother pancreatic - Hypertension Father - Diabetes Maternal Uncle - Diabetes Maternal Uncle Patient Allergies ALLERGIES Allergen Reactions - Vioxx [Rofecoxib] Swelling tongue and throat swell Current Medications Current Outpatient Prescriptions on File Prior to Visit: gabapentin (NEURONTIN) 600 mg tablet TAKE 1 TABLET BY MOUTH THREE TIMES DAILY. gabapentin (NEURONTIN) 600 mg tablet Take 1 tablet by mouth three times daily for 30 days. Phentermine HCl (ADIPEX-P) 37.5 mg tablet Take 1 tablet by mouth once daily for 30 days. diazePAM (VALIUM) 5 mg tablet Take 1 tablet by mouth once daily for 90 days. SUMAtriptan (IMITREX) 50 mg tablet Take 1 tablet by mouth as needed for Migraine Headache (see administration instructions). No current facility-administered medications on file prior to visit. 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 General Appearance: Well appearing, alert, in no acute distress, well-hydrated, well nourished, Overweight. Lungs: Lungs clear to auscultation. No wheezing, rhonchi, rales. Heart: RRR without murmur, gallop, or rubs. No ectopy. Health Maintenance List DTAP,TDAP,TD(2 - Tdap) due on 2001 HPV EVERY 5 YEARS due on 2012 PAP EVERY 5 YEARS due on 08/19/2016 INFLUENZA(Season Ended) due on 06/06/2018 Data reviewed External - [facility] ASSESSMENT/PLAN: 1. Obesity, Class II, BMI 35-39.9 - ICD9: 278.00, ICD10: E66.9 (primary diagnosis) - Second month of Adipex given 2. KP (generalized anxiety disorder) - ICD9: 300.02, ICD10: F41.1 - Start Effexor, Rx for Klonopin 1 mg 1 mo f/u Nitin Wisdom MD The documentation for this note was completed by Cristina Burch Ma acting as scribe for Nitin Wisdom MD. February 27, 2018 3:45 PM. Referring Provider: NITIN WISDOM [[id number]] Allergies As of Date: 02/27/2018 Noted Allergy Reaction PROZAC (FLUOXETINE HCL) 02/27/2018 14 - Other: See Comments Comments: Caused insomnia VIOXX (ROFECOXIB) 05/25/2007 7 - Swelling Comments: tongue and throat swell Date Reviewed: 02/27/2018 Reviewed by: Cristina Burch Ma - Fully Assessed Reason for Visit: F/U 1 month [1175] Cmt: Weight Primary Visit Diagnosis:Obesity, Class II, BMI 35-39.9 [E66.9] Other Visit Diagnosis:KP (generalized anxiety disorder) [F41.1] Order(s):venlafaxine ER (EFFEXOR XR) 75 mg 24 hr capsuleTake 1 capsule by mouth once daily.Disp: 30 capsuleRfl: 1 clonazePAM (KLONOPIN) 1 mg tabletTake 1 tablet by mouth once daily as needed for up to 30 days.Disp: 30 tabletRfl: 0 Phentermine HCl (ADIPEX-P) 37.5 mg tabletTake 1 tablet by mouth once daily for 30 days.Disp: 30 tabletRfl: 0 Prescriptions as of 02/27/2018 Sig: PHENTERMINE 37.5 MG TABLET Take 1 tablet by mouth once d* GABAPENTIN 600 MG TABLET TAKE 1 TABLET BY MOUTH THREE * GABAPENTIN 600 MG TABLET Take 1 tablet by mouth three * SUMATRIPTAN 50 MG TABLET Take 1 tablet by mouth as nee* VENLAFAXINE ER 75 MG CAPSULE,* Take 1 capsule by mouth once * CLONAZEPAM 1 MG TABLET Take 1 tablet by mouth once d* Problem List As Of Date 02/27/2018 Noted Resolved Supervision of Other Normal [Z34.80] INVALID FOR*12/28/2009 Surveillance of other previously prescribed con*INVALID FOR*12/26/2011 ANXIETY STATE NOS [F41.1] INVALID FOR* More... 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 Unspecified Backache [M54.9] INVALID FOR*12/28/2009 Impaired fasting glucose [R73.01] INVALID FOR*12/26/2011 Insomnia [G47.00] INVALID FOR* Headache disorder [R51] INVALID FOR* Unspecified high-risk [O09.90] INVALID FOR*05/27/2012 More... Gestational diabetes mellitus, class A1 [O24.41*INVALID FOR*05/27/2012 More... History of shoulder dystocia in prior *INVALID FOR*05/27/2012 More... Sterilization [Z30.2] INVALID FOR* More... Abnormal maternal glucose tolerance, with deliv*INVALID FOR* Obesity, Class III, BMI 40-49.9 (morbid obesity*INVALID FOR* Prescriptions ordered this encounter Disp Refills Start End VENLAFAXINE ER 75 MG CAPSULE,EXTENDE* 30 c* 1 02/27/2018 Route: ORAL Sig: Take 1 capsule by mouth once daily. CLONAZEPAM 1 MG TABLET 30 t* 0 02/27/2018 03/29/2018 Class: Print RX Route: ORAL Sig: Take 1 tablet by mouth once daily as needed for up to 30 days. PHENTERMINE 37.5 MG TABLET 30 t* 0 02/27/2018 03/29/2018 Class: Print RX Cmt: BMI - 37.75 Route: ORAL Sig: Take 1 tablet by mouth once daily for 30 days. Medications Discontinued During This Encounter diazePAM (VALIUM) 5 mg tablet 30 t* 2 01/08/2018 02/27/2018 Class: Call Rx Route: ORAL Sig: Take 1 tablet by mouth once daily for 90 days. Disc: Changing Therapy/Dosage Form Phentermine HCl (ADIPEX-P) 37.5 mg t* 30 t* 0 01/28/2018 02/27/2018 Class: Print RX Cmt: BMI 39 Route: ORAL Sig: Take 1 tablet by mouth once daily for 30 days. Disc: Reason for discontinue is not on file. Disposition: Return in about 4 weeks (around 03/27/2018). Follow-up and Disposition History Recorded Encounter Status:Closed by NITIN WISDOM MD on 02/27/18 PROGRESS Observed: 02/27/2018 Status: COMPLETED Source: [place] 3:45 PM [facility] REPOSITORY HNO ID: [id number] Author: Nitin Wisdom Service: (none) Author Type: Physician Type: Progress Notes Filed: 02/27/2018 4:40 PM Note Text: Chief Complaint Patient presents with: F/U 1 month: Weight HPI Carlos Foley is a 37 year old female who presents here today for a 1 mo f/u. Will be having a Youth [place] tonight with her hinduism and going to [employer] as there Scientologist rents it out for 2 hours, celebrating her grandma's birthday on Friday, reunion on Friday and took 2 days off to do absolutely nothing (excited about those days). Weight - Pt here today for her second Rx of Adipex. Has lost 9 lbs over the first month. Does notice that her appetite is decreased, but doesn't go without eating. She is eating better instead of eating out of the vending machine, she is taking banana or a better choice of foods. She is controlling portion sizes due to not being hungry. Continues to do cardio 3 times per week at the gym, active at work, push mows her yard and will be opening her pool to start swimming. Side effect of dry mouth but chewing gum and drinking water. Minimal constipation. Currently taking Phentermine 37.5 mg 1 tab po once daily. 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 Over the last 2-3 weeks she is noticing the Valium 5 mg once daily is not holding her anxiety attacks. At last OV she discussed about changing to Klonopin and what the difference in medication was and feeling it may last her through the day. She takes pride in her work and stresses on messing up and panics easily. Has previously tried Prozac (unable to sleep) and Zoloft (no effect with medication). UTI's - Was seen at [facility] ER for UTI. Patient's family has a history of Kidney Failure and she has some concerns due to not voiding frequently. She is able to hold it for an extended amount of time, which is nothing unusual for her. Does drink plenty of fluids, 24 oz bottle water (refilling 3 times over the day). Past medical history, appointments, medications, allergies reviewed. Previous Medical History PAST MEDICAL HISTORY Diagnosis Date - Infectious mononucleosis 1997 - Personal history of tuberculosis diagnoses with [facility] pulmonary [facility] 10 [facility], concurrent with father's disease Previous Surgical History PAST SURGICAL HISTORY Procedure Laterality Date - ESSURE 06/22/2012 Dr Sanders Family History FAMILY HISTORY Problem Relation Age of Onset - Hypertension Mother - Hypertension Maternal Grandmother - Hypertension Maternal Grandfather - Cancer Paternal Grandmother pancreatic - Hypertension Father - Diabetes Maternal Uncle - Diabetes Maternal Uncle Patient Allergies ALLERGIES Allergen Reactions - Vioxx [Rofecoxib] Swelling tongue and throat swell Current Medications Current Outpatient Prescriptions on File Prior to Visit: gabapentin (NEURONTIN) 600 mg tablet TAKE 1 TABLET BY MOUTH THREE TIMES DAILY. gabapentin (NEURONTIN) 600 mg tablet Take 1 tablet by mouth three times daily for 30 days. Phentermine HCl (ADIPEX-P) 37.5 mg tablet Take 1 tablet by mouth once daily for 30 days. diazePAM (VALIUM) 5 mg tablet Take 1 tablet by mouth once daily for 90 days. SUMAtriptan (IMITREX) 50 mg tablet Take 1 tablet by mouth as needed for Migraine Headache (see administration instructions). No current facility-administered medications on file prior to visit. 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 General Appearance: Well appearing, alert, in no acute distress, well-hydrated, well nourished, Overweight. Lungs: Lungs clear to auscultation. No wheezing, rhonchi, rales. Heart: RRR without murmur, gallop, or rubs. No ectopy. Health Maintenance List DTAP,TDAP,TD(2 - Tdap) due on 2001 HPV EVERY 5 YEARS due on 2012 PAP EVERY 5 YEARS due on 08/19/2016 INFLUENZA(Season Ended) due on 06/06/2018 Data reviewed External - [facility] ASSESSMENT/PLAN: 1. Obesity, Class II, BMI 35-39.9 - ICD9: 278.00, ICD10: E66.9 (primary diagnosis) - Second month of Adipex given 2. KP (generalized anxiety disorder) - ICD9: 300.02, ICD10: F41.1 - Start Effexor, Rx for Klonopin 1 mg 1 mo f/u Nitin Wisdom MD The documentation for this note was completed by Cristina Burch Ma acting as scribe for Nitin Wisdom MD. February 27, 2018 3:45 PM. DISCHARGE INSTRUCTION Observed: 02/04/2018 Status: F Source: [place] 5:12 PM [facility] REPOSITORY [facility] Medical Records Department [address] [place] [address] Discharge Instruction 02/04/181711 MR#: [id number] Acct: [id number] Name: CARLOS FOLEY ANN Rep #: [id number] : 1980 37 From: Lopez Dougherty MD PCP: Nitin Wisdom MD Status: REG ER ED Disposition - Plan for ED Patient: Disposition: Home or Assisted Living Chief Complaint: Complaint Instructions: ED UTI Cystitis Female Prescriptions: Phenazopyridine HCl [Pyridium] 200 mg PO BID PRN PRN #10 tab PRN Reason: Pain Smz/Tmp Ds [Bactrim Ds] 1 tab PO BID #9 tab Referrals: Nitin Wisdom MD [Primary Care Provider] - What to do if you have Problems For any increased pain, shortness of breath, bleeding, nausea or vomiting, chest pain, or any unexpected problems, contact your Primary Care Provider. Call [facility] ([phone]) or report to the closest Emergency Room. Call 911 if necessary. 02/04/181711 <Electronically signed by Lopez Dougherty MD> Date Lopez Dougherty MD Cosigner Signature (If Indicated): Date CC: Nitin Wisdom MD EMERGENCY DEPARTMENT Observed: 02/04/2018 Status: F Source: [place] SUMMARY 5:11 PM [facility] REPOSITORY [facility] Medical Records Department [address] [place] [address] Emergency Department Summary 02/04/18 1526 MR#: [id number] Acct: [id number] Name: CARLOS FOLEY Rep #: [id number] : 1980 37 From: Lopez Dougherty MD PCP: Nitin Wisdom MD Status: REG ER - ER Visit Summary Date of Service: 02/04/18 Chief Complaint: Dysuria History of Present Illness: The patient is a 37 F who has had 2 days of dysuria. She states it started with pain at the end of her urine stream but now it is a constant pain in her urethra. She does have a history of UTIs in the past. Denies any abdominal pain, nausea or vomiting. Denies any fevers or hematuria. She does admit that the smell of her urine has changed Physical Examination: Vital signs reviewed. HEENT exam unremarkable. Heart is regular rate and rhythm without murmurs. Lungs are clear to auscultation. Abdomen is soft and nontender. Extremities reveal no edema. Neurologic exam normal. Test Results: UA shows greater than 100 white blood cells Emergency Department Course and Treatment: Patient will be treated with Bactrim for UTI. I will give her Pyridium for home. We will follow-up with her PCP Treatment Plan: [] Disposition: Discharge Impression: UTI This note was generated with [employer] dictation software. It may contain incorrect words, spelling, and punctuation that were not noted in review of the chart prior to signing ED Disposition - Plan for ED Patient: Chief Complaint: Complaint Referrals: Nitin Wisdom MD [Primary Care Provider] - What to do if you have Problems For any increased pain, shortness of breath, bleeding, nausea or vomiting, chest pain, or any unexpected problems, contact your Primary Care Provider. Call [facility] ([phone]) or report to the closest Emergency Room. Call 911 if necessary. 02/04/18 1711 <Electronically signed by Lopez Dougherty MD> Date Lopez Dougherty MD Cosigner Signature (If Indicated): Date CC: Nitin Wisdom MD ,URINE Collected: 02/04/2018 Status: F Source: [place] 4:29 PM [facility] REPOSITORY Order Comment: Order Date: 02/04/18 TYPE CODE TESTS RESULT OUT OF REFERENCE UNITS RANGE LAB L400.8000 Negative Normal HCGUQUAL Negative Result Comment: Very dilute urine specimens, as indicated by a low specific gravity, may not contain marketing sales representative levels of hCG. If is still suspected, a first morning urine specimen should be collected 48 hours later and tested. Performed By: #### L400.7600 #### [facility] [address] [place], [address] URINALYSIS, COMPLETE Collected: 02/04/2018 Status: F Source: [place] 4:29 PM [facility] REPOSITORY Order Comment: Order Date: 02/04/18 How was Urine Obtained? CLEAN CATCH TYPE CODE TESTS RESULT OUT OF RANGE REFERENCE UNITS LAB L400.3000 Yellow COLOR Normal Yellow LAB L400.3050 Clear Normal CLARITY Cloudy LAB L400.3200 Normal mg/dl Normal GLUCOSE, UR Normal LAB L400.3300 Negative mg/dL Normal BILIRUBIN URINE Negative LAB L400.3400 Negative mg/dl Normal KETONE UR Negative LAB L400.3465 1.002-1.030 Normal SP.GR. DIPSTX 1.020 LAB L400.3550 5.0 - 8.0 pH UR Normal 6.0 LAB L400.3600 Negative mg/dl High PROT 30 DIPSTX LAB L400.3700 Normal mg/dl Normal UROBILI Normal LAB L400.3750 Negative High NITRITE UR Positive LAB L400.3780 Negative /ul High 25 OCCULT BLOOD-UR LAB L400.3800 Negative /ul High LEUK ESTERASE 500 LAB L400.4050 0-5 /hpf WBC Normal >100 SEEN LAB L400.4100 0-5 /hpf Normal RBC-UA 5-10 SEEN LAB L400.4150 5-10 /hpf SQUAM Normal EPI 0-5 SEEN LAB L400.4300 None Seen /hpf 2+ Normal BACTERIA LAB L400.4350 <or=2+ /hpf 3+ Normal MUCUS, URINE Performed By: #### L400.0001 #### [facility] [address] [place], [place], [id number] PROGRESS Observed: 01/28/2018 Status: COMPLETED Source: [place] 4:48 PM [facility] REPOSITORY HNO ID: [id number] Author: Nitin Wisdom Service: (none) Author Type: Physician Type: Progress Notes Filed: 01/28/2018 5:11 PM Note Text: Chief Complaint Patient presents with: Medication Follow-up: Anxiety, Weight loss and RLS HPI Cralos Foley is a 37 year old female who presents here today for medication follow up. Currently working at [employer] and recently got a job promotion to [employer]. Headaches/Migraines - Denies having any migraines/REBOLLEDO in quite some times but keeps Imitrex on hand. Doing well with regimen, works well for her when RLS - States that her R leg is more bothersome then the L leg. Medication is helpful with symptoms but does have to use Melatonin to help her sleep at times. Using Gabapentin 600 mg 2 -3 times per day. Standing at work does bother her due to being on the concrete. Does have rubber mats. Anxiety - Uses Valium 5 mg prn. States that during the winter she has more anxiety and get overwhelmed easily. Recently got a new promotion with her job and has 4 boys. Had questions about Klonopin due to her mother being on the medication and whether if it's the same class as Valium. Weight - Would like to start a weight loss medication. Her sister recently started the medication and has had excellent results with the medication in her first month. Patient already has been working on losing weight by going to [employer] at least 3 x times a week for at least 20 minutes. Has been trying to exercise since July. Past medical history, appointments, medications, allergies reviewed. 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 Previous Surgical History PAST SURGICAL HISTORY Procedure Laterality Date - ESSURE 06/22/2012 Dr Sanders Family History FAMILY HISTORY Problem Relation Age of Onset - Hypertension Mother - Hypertension Maternal Grandmother - Hypertension Maternal Grandfather - Cancer Paternal Grandmother pancreatic - Hypertension Father - Diabetes Maternal Uncle - Diabetes Maternal Uncle Patient Allergies ALLERGIES Allergen Reactions - Vioxx [Rofecoxib] Swelling tongue and throat swell Current Medications Current Outpatient Prescriptions on File Prior to Visit: diazePAM (VALIUM) 5 mg tablet Take 1 tablet by mouth once daily for 90 days. gabapentin (NEURONTIN) 600 mg tablet TAKE 1 TABLET BY MOUTH THREE TIMES DAILY. SUMAtriptan (IMITREX) 50 mg tablet Take 1 tablet by mouth as needed for Migraine Headache (see administration instructions). No current facility-administered medications on file prior to visit. Social History Social History Marital status: Single Spouse name: MITRA Years of education: 12 Number of children: 3 Occupational History Occupation Employer Comment [employer] Social History Main Topics Smoking status: Never Smoker Smokeless status: Never Used Alcohol use: No Drug use: No Sexual activity: Not Currently Partners with: Male control/protection: Injection, None EXAM: BP 130/84 (BP Site: Left Arm, BP Position: Sitting, BP Cuff Size: Regular Adult) Pulse 72 Resp 16 Ht 165.7 cm (5' 5.25) Wt 107.7 kg (237 lb 6.4 oz) BMI 39.2 kg/m2 General Appearance: Well appearing, alert, in no acute distress, well-hydrated, well nourished., Overweight. Lungs: Lungs clear to auscultation. No wheezing, rhonchi, rales. Heart: RRR without murmur, gallop, or rubs. No ectopy. Health Maintenance List HPV EVERY 5 YEARS due on 2012 TETANUS due on 02/13/2016 PAP EVERY 5 YEARS due on 08/19/2016 INFLUENZA(Season Ended) due on 06/06/2018 Data reviewed None ASSESSMENT/PLAN: 1. Headache disorder - ICD9: 784.0, ICD10: R51 (primary diagnosis) - Stable, use Imitrex as needed 2. KP (generalized anxiety disorder) - ICD9: 300.02, ICD10: F41.1 - Continue current medication regimen. 3. RLS (restless legs syndrome) - ICD9: 333.94, ICD10: G25.81 - Continue current medication regimen. - GABAPENTIN 600 MG TABLET 4. Obesity, Class II, BMI 35-39.9 - ICD9: 278.00, ICD10: E66.9 - Start first mo of Adipex 1 mo f/u Adipex Nitin Wisdom MD The documentation for this note was completed by Cristina Burch Ma acting as scribe for Nitin Wisdom MD. January 28, 2018 4:48 PM. CNOV Observed: 01/28/2018 Status: COMPLETED Source: [place] 4:40 PM [facility] REPOSITORY Office Visit (FAMPWS) CARLOS FOLEY ([id number]) 1980 F Date Time Provider Department 01/28/18 4:40 PM NITIN WISDOM FAMPWS During your visit today, we recorded the following information about you: Pulse Respiration Blood pressure Weight 72/minute 16/minute 130/84 107.7 kg Height 1.657 m Nitin Wisdom MD 01/28/2018 5:11 PM Signed Chief Complaint Patient presents with: Medication Follow-up: Anxiety, Weight loss and RLS HPI Carlos Foley is a 37 year old female who presents here today for medication follow up. Currently working at [employer] and recently got a job promotion to [employer]. Headaches/Migraines - Denies having any migraines/REBOLLEDO in quite some times but keeps Imitrex on hand. Doing well with regimen, works well for her when RLS - States that her R leg is more bothersome then the L leg. Medication is helpful with symptoms but does have to use Melatonin to help her sleep at times. Using Gabapentin 600 mg 2 -3 times per day. Standing at work does bother her due to being on the concrete. Does have rubber mats. Anxiety - Uses Valium 5 mg prn. States that during the winter she has more anxiety and get overwhelmed easily. Recently got a new promotion with her job and has 4 boys. Had questions about Klonopin due to her mother being on the medication and whether if it's the same class as Valium. Weight - Would like to start a weight loss medication. Her sister recently started the medication and has had excellent results with the medication in her first month. Patient already has been working on losing weight by going to [facility] at least 3 x times a week for at least 20 minutes. Has been trying to exercise since July. Past medical history, appointments, medications, allergies reviewed. 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 Previous Surgical History PAST SURGICAL HISTORY Procedure Laterality Date - ESSURE 06/22/2012 Dr Sanders Family History FAMILY HISTORY Problem Relation Age of Onset - Hypertension Mother - Hypertension Maternal Grandmother - Hypertension Maternal Grandfather - Cancer Paternal Grandmother pancreatic - Hypertension Father - Diabetes Maternal Uncle - Diabetes Maternal Uncle Patient Allergies ALLERGIES Allergen Reactions - Vioxx [Rofecoxib] Swelling tongue and throat swell Current Medications Current Outpatient Prescriptions on File Prior to Visit: diazePAM (VALIUM) 5 mg tablet Take 1 tablet by mouth once daily for 90 days. gabapentin (NEURONTIN) 600 mg tablet TAKE 1 TABLET BY MOUTH THREE TIMES DAILY. SUMAtriptan (IMITREX) 50 mg tablet Take 1 tablet by mouth as needed for Migraine Headache (see administration instructions). No current facility-administered medications on file prior to visit. Social History Social History Marital status: Single Spouse name: MIRTA Years of education: 12 Number of children: 3 Occupational History Occupation Employer Comment [employer] Social History Main Topics Smoking status: Never Smoker Smokeless status: Never Used Alcohol use: No Drug use: No Sexual activity: Not Currently Partners with: Male control/protection: Injection, None EXAM: BP 130/84 (BP Site: Left Arm, BP Position: Sitting, BP Cuff Size: Regular Adult) Pulse 72 Resp 16 Ht 165.7 cm (5' 5.25ANDquot;) Wt 107.7 kg (237 lb 6.4 oz) BMI 39.2 kg/m2 General Appearance: Well appearing, alert, in no acute distress, well-hydrated, well nourished., Overweight. Lungs: Lungs clear to auscultation. No wheezing, rhonchi, rales. Heart: RRR without murmur, gallop, or rubs. No ectopy. Health Maintenance List HPV EVERY 5 YEARS due on 2012 TETANUS due on 02/13/2016 PAP EVERY 5 YEARS due on 08/19/2016 INFLUENZA(Season Ended) due on 06/06/2018 Data reviewed None ASSESSMENT/PLAN: 1. Headache disorder - ICD9: 784.0, ICD10: R51 (primary diagnosis) - Stable, use Imitrex as needed 2. KP (generalized anxiety disorder) - ICD9: 300.02, ICD10: F41.1 - Continue current medication regimen. 3. RLS (restless legs syndrome) - ICD9: 333.94, ICD10: G25.81 - Continue current medication regimen. - GABAPENTIN 600 MG TABLET 4. Obesity, Class II, BMI 35-39.9 - ICD9: 278.00, ICD10: E66.9 - Start first mo of Adipex 1 mo f/u Adipex Nitin Wisdom MD The documentation for this note was completed by Cristina Burch Ma acting as scribe for Nitin Wisdom MD. January 28, 2018 4:48 PM. Referring Provider: SELF [[id number]] Allergies As of Date: 01/28/2018 Noted Allergy Reaction VIOXX (ROFECOXIB) 05/25/2007 7 - Swelling Comments: tongue and throat swell Date Reviewed: 01/28/2018 Reviewed by: Cristina Burch Ma - Fully Assessed Reason for Visit: Medication Follow-up [270] Cmt: Anxiety, Weight loss and RLS Reason For Visit History Recorded Primary Visit Diagnosis:Headache disorder [R51] Other Visit Diagnoses:KP (generalized anxiety disorder) [F41.1] RLS (restless legs syndrome) [G25.81] Obesity, Class II, BMI 35-39.9 [E66.9] Order(s):gabapentin (NEURONTIN) 600 mg tabletTake 1 tablet by mouth three times daily for 30 days.Disp: 90 tabletRfl: 0 Phentermine HCl (ADIPEX-P) 37.5 mg tabletTake 1 tablet by mouth once daily for 30 days.Disp: 30 tabletRfl: 0 Prescriptions as of 01/28/2018 Sig: GABAPENTIN 600 MG TABLET Take 1 tablet by mouth three * DIAZEPAM 5 MG TABLET Take 1 tablet by mouth once d* SUMATRIPTAN 50 MG TABLET Take 1 tablet by mouth as nee* PHENTERMINE 37.5 MG TABLET Take 1 tablet by mouth once d* Problem List As Of Date 01/28/2018 Noted Resolved Supervision of Other Normal [Z34.80] INVALID FOR*12/28/2009 Surveillance of other previously prescribed con*INVALID FOR*12/26/2011 ANXIETY STATE NOS [F41.1] INVALID FOR* More... 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 Unspecified Backache [M54.9] INVALID FOR*12/28/2009 Impaired fasting glucose [R73.01] INVALID FOR*12/26/2011 Insomnia [G47.00] INVALID FOR* Headache disorder [R51] INVALID FOR* Unspecified high-risk [O09.90] INVALID FOR*05/27/2012 More... Gestational diabetes mellitus, class A1 [O24.41*INVALID FOR*05/27/2012 More... History of shoulder dystocia in prior *INVALID FOR*05/27/2012 More... Sterilization [Z30.2] INVALID FOR* More... Abnormal maternal glucose tolerance, with deliv*INVALID FOR* Prescriptions ordered this encounter Disp Refills Start End GABAPENTIN 600 MG TABLET 90 t* 0 01/28/2018 02/27/2018 Route: ORAL Sig: Take 1 tablet by mouth three times daily for 30 days. PHENTERMINE 37.5 MG TABLET 30 t* 0 01/28/2018 02/27/2018 Class: Print RX Cmt: BMI 39 Route: ORAL Sig: Take 1 tablet by mouth once daily for 30 days. Medications Discontinued During This Encounter busPIRone (BUSPAR) 15 mg tablet 30 t* 1 10/21/2016 01/28/2018 Route: ORAL Sig: Take 0.5 tablets by mouth three times daily. Disc: Discontinued by Patient citalopram (CELEXA) 40 mg tablet 30 t* 5 07/15/2016 01/28/2018 Route: ORAL Sig: Take 1 tablet by mouth once daily. Disc: Discontinued by Patient gabapentin (NEURONTIN) 600 mg tablet 90 t* 0 12/31/2017 01/28/2018 Sig: TAKE 1 TABLET BY MOUTH THREE TIMES DAILY. Disc: Reason for discontinue is not on file. Disposition: Return in about 4 weeks (around 02/25/2018). Follow-up and Disposition History Recorded Encounter Status:Closed by NITIN WISDOM MD on 01/28/18 ALLERGIES ALLERGIES DATE TYPE / CODE NAME / CODE REACTION SEVERITY SOURCE 02/27/2018 DRUG FLUOXETINE HCL OTHER: SEE [facility]/[address] [place] [id number]([facility] Repository ED CT) 02/04/2018 Drug rofecoxib/[id number] Swelling Unknown Sha[facility]/416 787(RXNORM) [facility] [id number]([facility] ED CT) Repository 05/25/2007 DRUG ROFECOXIB SWELLING [address] [id number]([facility] Repository ED CT) ENCOUNTERS ENCOUNTERS ADMIT/DISCHARGE ACCOUNT ADMITTING ENCOUNTER LOCATION SOURCE NUMBER CLASS 10/27/2018/10/27/19 [id number] Ambulatory [address] [place] Repository 09/30/2018/10/01/20 [id number] Ambulatory [address] Repository 09/15/2018 [id number] Ambulatory [facility] ing:PSN Repository 08/17/2018/08/19/20 [id number] Ambulatory [address] [place] Repository 07/27/2018/07/28/20 [id number] Ambulatory [address] [place] Repository 07/22/2018/07/23/20 [id number] Ambulatory [address] [place] Repository 07/08/2018/07/08/20 [id number] Ambulatory [address] [place] Repository 06/15/2018/06/15/20 [id number] Ambulatory [address] [place] Repository 06/15/2018/06/16/20 [id number] Ambulatory [address] Repository 04/01/2018/04/02/20 [id number] Ambulatory [address] [place] Repository 02/27/2018/03/03/20 [id number] Ambulatory [address] [place] Repository 02/04/2018/02/05/20 [id number] [facility] [place] ing:ED Repository 01/28/2018/01/30/20 [id number] Ambulatory [address] Repository PAYERS PAYERS ENCOUNTER GUARANTOR PAYER SUBSCRIBER SOURCE 09/15/2018 CARLOS A Primary CARLOS Dunn [id number] SR Insurance:CARESOURCEP RIDENOURDOB: [address] Number: [id number] [address]Nll: [id number] Repository Date:2018-06-15P O () [address]ATTN: [place] [address]WM: 09/15/2018 Secondary NOT GIVENUNK [place] Insurance:SELF PAY [facility] Number: Effective Repository Date:2018-06-15 02/04/2018 Mirta Valverde Primary Carlos Dunn [id number] Insurance:MEDICAL RidenourD[facility] 1861-09-13[place] [address]Sjy: Number: Repository [id number] (HP) Date:9611-07-25[address]F [address], [place] [address]UJ: 02/04/2018 Secondary Carlos Dunn Insurance:CARESOURCEP RidenourDOB: [facility] Number: [id number] [id number] Repository Date:2018-02-04P [address]ATTN: [place] [address]PK: 02/04/2018 Tertiary NOT GIVENUNK [place] Insurance:SELF PAY [facility] Number: Effective Repository Date:2018-02-04
== END ==
PROVIDERS: Family Provider Family Medicine; PCP Family Medicine; Referring Provider Family Medicine; Visit Provider Family Medicine
DX: G56.03 Carpal tunnel syndrome, bilateral upper limbs (principal)
CPT/HCPCS: 95886; 95911